=== PATIENT | male | born 1955 | race Caucasian/White ===

== ENCOUNTER → 2016-10-18 | Outpatient (CLI) | payer BC ==
[~2016-10-18] MED LIST: ADVIN25050 INH; CMBIN INH; FEXO1TAB46 PO; METO25TA3 PO; MOME50SP5; OMEP20CA9 PO; PLMINSR5 INH; TRIA1SPR4 NAE; VERA240T20 PO
--- NOTE | 2016-10-18 13:05 | DIAGNOSTIC IMAGING REPORT ---
TWO VIEW CHEST CLINICAL HISTORY: Cough. FINDINGS: PA and lateral chest radiographs are compared to study dated 07/24/2016 and correlated with chest CT dated 05/06/2006. The heart is enlarged and there is atherosclerotic calcification of the thoracic aorta. Pulmonary vasculature is noncongested. Enlargement of the central pulmonary arteries suggests pulmonary artery hypertension. Emphysema and chronic interstitial thickening is similar to previous. Linear atelectasis versus scarring is present at both lung bases. Indeterminant nodular densities are noted on the lateral projection. There is no pneumothorax. The bony thorax appears intact. IMPRESSION: 1. Cardiomegaly and emphysema. There is no acute cardiopulmonary abnormality. 2. Indeterminate nodular densities are seen on the lateral projection. Although these could represent superimposition of shadows, follow-up with a dedicated chest CT is recommended for further assessment and to exclude underlying pulmonary lesion. Electronically signed by: Jonas Renee M.D. 10/18/2016 1:03 PM
== END | disposition home or self-care (01) ==
LOC: C.RADBC 12:10
PROVIDERS: ATTEND Internal Medicine Geriatric Medicine
DX: R05 Cough (principal)

== ENCOUNTER → 2016-10-27 | Outpatient (CLI) | payer BC ==
[~2016-10-27] MED LIST changes: +OPTIRAY 320 IV PRN
--- NOTE | 2016-10-27 15:02 | DIAGNOSTIC IMAGING REPORT ---
CT OF THE CHEST WITH IV CONTRAST CLINICAL HISTORY: Cough. Abnormal chest radiograph. COMPARISON STUDY: Chest radiograph October 18, [address] May 06, 2006. TECHNIQUE: Following IV administration of 93 mL of Optiray-320, helical axial images of the chest were obtained. Images were viewed in the axial, sagittal and coronal planes. IV contrast was administered without complication. CT DOSE: 371.11 mGy.cm FINDINGS: No enlarged axillary, mediastinal or hilar lymph nodes are present. There is slight dilatation of the ascending aorta. There is no dissection. A small hiatal hernia is present. There is no pericardial effusion. The central airways are patent with the exception of multifocal narrowing within the bronchi of the right middle lobe. There is right middle lobe volume loss with airspace opacity. Patchy airspace opacities are noted within the left upper lobe and superior segment of the left lower lobe which accounts for the findings on prior chest radiograph. There is also minimal tree-in-bud opacities within the right upper lobe. A 7 mm right upper lobe nodule shown on image 166 of 361 is low suspicion but indeterminate. This was not present on CT of May 06, 2016. The bony thorax is unremarkable. There are no abnormalities within visualized portions of the upper abdomen. IMPRESSION: 1. Mild scattered airspace opacities within the lungs, most confluent within the apicoposterior segment of the left upper lobe and superior segment of the left lower lobe. These account for the findings on prior chest radiograph. The findings favor a mild multifocal pneumonia. A follow-up chest CT in 2 months to ensure resolution is recommended. 2. Right middle lobe volume loss with airspace opacities and suspected mucous plugging. No central obstructing mass. This can be assessed at time of follow-up chest CT to ensure stability or resolution. Electronically signed by: Shiva Catherine M.D. 10/27/2016 3:00 PM Dictated Date/Time: 10/27/2016 2:46 PM
== END | disposition home or self-care (01) ==
LOC: C.CTS 14:21
PROVIDERS: ATTEND Internal Medicine Geriatric Medicine
DX: J18.9 Pneumonia, unspecified organism (principal); R05 Cough

== ENCOUNTER → 2016-11-15 | Outpatient (CLI) | payer BC ==
[~2016-11-15] MED LIST changes: -OPTIRAY 320 IV PRN
[2016-11-15 14:48] LABS: BASO % 0.4 %; BASO ABS # 0.02 K/uL (0-0.2); COMPLETE YES; EOS % 7.2 %; HEMATOCRIT 47.6 % (42-52); IG% 0.4 %; LYMPH % 18.2 %; LYMPH ABS # 0.88 K/uL (1.2-3.4); MEAN CELL VOLUME 86.1 fL (80-100); MEAN CORPUSCULAR HEMOGLOBIN 28.6 pg (25-34); MEAN CORPUSCULAR HGB CONC 33.2 g/dl (32-36); MEAN PLATELET VOLUME 10.1 fL (7.4-10.4); MONO % 8.3 %; NEUT % 65.5 %; PLATELET COUNT 223 K/uL (130-400); RED BLOOD COUNT 5.53 M/uL (4.7-6.1); WHITE BLOOD COUNT 4.83 K/uL (4.8-10.8)
[2016-11-15 15:14] LABS: ESTIMATED AVERAGE GLUCOSE 114 mg/dl; HA1C FLAG Normal (Normal)
[2016-11-15 17:27] LABS: ALT/SGPT 39 U/L (12-78); BLOOD UREA NITROGEN 18 mg/dl (7-18); BUN/CREATININE RATIO 17.6 (10-20); CALCIUM 9.2 mg/dl (8.5-10.1); CARBON DIOXIDE 24 mmol/L (21-32); CHLORIDE 106 mmol/L (98-107); CHOLESTEROL 205 mg/dl (0-200); GLUCOSE 89 mg/dl (70-99); POTASSIUM 4.6 mmol/L (3.5-5.1); SODIUM 142 mmol/L (136-145)
[2016-11-15 17:41] LABS: ALB/GLOB RATIO 1.2 (0.9-2); ALKALINE PHOSPHATASE 80 U/L (45-117); AST/SGOT 17 U/L (15-37); CHOLESTEROL/HDL RATIO 4.8; HDL CHOLESTEROL 43 mg/dl; LDL CHOLESTEROL CALCULATED 130 mg/dl; TRIGLYCERIDES 161 mg/dl (0-150); VERY LOW DENSITY LIPOPROT CALC 32 mg/dl
== END | disposition home or self-care (01) ==
LOC: C.LAB 12:53
PROVIDERS: ATTEND Internal Medicine Geriatric Medicine
DX: Z86.79 Personal history of other diseases of the circulatory system (principal); J45.909 Unspecified asthma, uncomplicated; E78.5 Hyperlipidemia, unspecified; R73.9 Hyperglycemia, unspecified

== ENCOUNTER → 2016-11-23 | Outpatient (CLI) | payer BC ==
--- NOTE | 2016-11-23 13:41 | DIAGNOSTIC IMAGING REPORT ---
CHEST 2 VIEWS ROUTINE CLINICAL HISTORY: Aspiration pneumonia COMPARISON STUDY: October 18, 2016 FINDINGS: The cardiac and mediastinal contours are normal. There is no evidence of focal pulmonary consolidation. There is no evidence of failure. No pleural effusions are visualized.[ Linear bibasilar opacities are likely atelectatic. IMPRESSION: Bibasal atelectatic changes. No evidence of focal pulmonary consolidation on conventional radiographic imaging Electronically signed by: Mich Valentine M.D. 11/23/2016 1:40 PM Dictated Date/Time: 11/23/2016 1:39 PM
[2016-11-23 14:52] LABS: % FREE PSA 10.3 %; FREE PSA 1.29 ng/ml; PROSTATE SPECIFIC ANTIGEN 12.5 ng/ml (0.000-4.000)
[2016-11-25 10:19] LABS: QUANTIFERON NIL 0.05 IU/ML
== END | disposition home or self-care (01) ==
LOC: C.LAB1850 12:40
PROVIDERS: ATTEND Internal Medicine Pulmonary Disease
DX: J69.0 Pneumonitis due to inhalation of food and vomit (principal); R97.20 Elevated prostate specific antigen [PSA]; J18.9 Pneumonia, unspecified organism

== ENCOUNTER → 2016-11-26 | Outpatient (CLI) | payer BC | END | disposition home or self-care (01) | LOC: C.LABSPEC 11:27 | PROVIDERS: ATTEND Internal Medicine Pulmonary Disease | DX: J18.9 Pneumonia, unspecified organism (principal) ==

== ENCOUNTER → 2016-12-27 | Outpatient (CLI) | payer BC ==
[~2016-12-27] MED LIST changes: +OPTIRAY 320 IV PRN
--- NOTE | 2016-12-27 09:11 | DIAGNOSTIC IMAGING REPORT ---
CHEST CT WITH CONTRAST CT DOSE: 398.29 mGy.cm HISTORY: Abnormal CT exam J69.0 Aspiration pneumonia due to food (regurgitated)do in early TECHNIQUE: Multiaxial CT images of the chest were performed following the intravenous administration of contrast. COMPARISON: 10/27/2016 FINDINGS: Left lung is now considered clear. Infiltrative changes previously described have essentially resolved. Minimal residual 3 mm nodular density left base unchanged. Continued be atelectatic changes of components of the right middle lobe. This is identical as compared to the prior study. There is no significant mediastinal or hilar adenopathy. There is a small hiatal hernia. Liver shows mild heterogeneity in the outer cortical scarring. IMPRESSION: 1. Improved exam with left lung now considered clear. 2. Persistent right middle lobe atelectatic change. 3. Potential early cirrhotic change of liver Electronically signed by: Otoniel Scott M.D. 12/27/2016 9:09 AM Dictated Date/Time: 12/27/2016 9:05 AM
== END | disposition home or self-care (01) ==
LOC: C.CTS 08:37
PROVIDERS: ATTEND Internal Medicine Pulmonary Disease
DX: J69.0 Pneumonitis due to inhalation of food and vomit (principal)

== ENCOUNTER → 2017-01-15 | Outpatient (CLI) | payer BC ==
[~2017-01-15] MED LIST changes: -OPTIRAY 320 IV PRN
[2017-01-15 12:11] LABS: BASO % 0.5 %; BASO ABS # 0.02 K/uL (0-0.2); COMPLETE YES; EOS % 5.7 %; HEMATOCRIT 45.8 % (42-52); IG% 0.3 %; MEAN CELL VOLUME 84.5 fL (80-100); MEAN CORPUSCULAR HGB CONC 33.2 g/dl (32-36); MEAN PLATELET VOLUME 9.7 fL (7.4-10.4); MONO % 9.1 %; NEUT % 58.4 %; PLATELET COUNT 244 K/uL (130-400); RED BLOOD COUNT 5.42 M/uL (4.7-6.1); WHITE BLOOD COUNT 3.84 K/uL (4.8-10.8)
[2017-01-15 12:30] LABS: PARTIAL THROMBOPLASTIN RATIO 1.1; PROTHROMBIN TIME (PATIENT) 10.6 SECONDS (9.0-12.0)
[2017-01-15 12:31] LABS: ALT/SGPT 30 U/L (12-78); AST/SGOT 12 U/L (15-37); BLOOD UREA NITROGEN 10 mg/dl (7-18); BUN/CREATININE RATIO 9.9 (10-20); CALCIUM 9.4 mg/dl (8.5-10.1); CARBON DIOXIDE 29 mmol/L (21-32); CHLORIDE 109 mmol/L (98-107); CREATININE 0.97 mg/dl (0.60-1.40); GLUCOSE 111 mg/dl (70-99); POTASSIUM 4.9 mmol/L (3.5-5.1); SODIUM 142 mmol/L (136-145)
[2017-01-15 12:37] LABS: ALB/GLOB RATIO 1.2 (0.9-2); ALKALINE PHOSPHATASE 75 U/L (45-117)
== END | disposition home or self-care (01) ==
LOC: C.LAB 11:36
PROVIDERS: ATTEND Internal Medicine Critical Care Medicine
DX: R73.9 Hyperglycemia, unspecified (principal); J45.40 Moderate persistent asthma, uncomplicated; J98.11 Atelectasis; R05 Cough; J69.0 Pneumonitis due to inhalation of food and vomit

== ENCOUNTER → 2017-01-20 | Day surgery (SDC) | payer BC ==
[~2017-01-20] VITALS: Ht 193 cm; Wt 94.0 kg
[2017-01-20] VITALS (16 sets, daily range): BP systolic 110–158; BP diastolic 75–114; PULSE 18–73; TEMP 36.3–36.5; O2SAT 96–100; Ht 193 cm; Wt 94.0 kg
[~2017-01-20] MED LIST changes: +FENTANYL CITRATE INJ 50 MCG/1 ML 2 ML VIAL IV ONE; +LIDOCAINE 4% INH SOLN 4 ML BTL ONE; +LIDOCAINE HCL 2% LOCAL 50ML VIAL INFIL ONE; +MIDAZOLAM HCL 5 MG/ML 1 ML VIAL IV ONE; +NURSING VERBAL MED ORDER ONE
--- NOTE | 2017-01-20 09:00 | History and Physical ---
History & Physical Date Jan 20, 2017. Chief Complaint RML atelectasis with poorly controlled asthma History of Present Illness The patient is a 61 year old male with complaints of RML atelectasis with poorly controlled asthma [id number] The patient is referred by Dr. Boo Schneider for evaluation of an abnormal chest x-ray and CT scan. He is a 61-year-old male who has a history of asthma for many years. For the most part his asthma has been well controlled. He carries a history of asthma for approximately 10 years. He states he used to see the pulmonary division at back in 2007. He became ill on ' morning. He awakened between 2 and 3 a.m. with regurgitation of stomach contents, cough, and feeling like he had aspirated. He developed severe coughing. He had a little bit of blood-tinged sputum. He vomited some at the time. The patient developed discomfort on the right side of his chest. He became ill again on November 01 and . He then when on a course of amoxicillin for 10 days. He felt some issues with his breathing again and the right-sided discomfort when taking deep breaths. This past weekend his chest did not feel right. He started dlrw-jlm-vsnlwrw guaifenesin. He coughed up what he describes as a lot of mucus that was clear to yellow. He had fevers of 100 degrees any had sweats this weekend. His cough was frequent but it has improved. The patient relates that he did have pneumonia treated as an outpatient in November of 2006 and he had pneumonia again in December of 2013. At that time he became ill when he had been on a trip to [place]. Additional history is that he had exposure to a student who had tuberculosis back in 2003. The confusing part is that he had a PPD done that was read as positive but he then had a repeat done in 2011 that was negative. He did not receive any prophylactic TB medications. The patient has not smoked in approximately 19 years. His last cigarette was 1997. He states he has smoked often on and he estimates he may have smoked for a total of 8 years in his lifetime. This would typically be with about 1 pack of cigarettes per day. Alcohol use is described as occasional. [id number] The patient is clinically much improved. However, his CT scan done recently shows persistent atelectasis in the right middle lobe. The left lung pneumonic infiltrates have cleared. In light of his history of aspiration the concern would be that he could have a foreign body such as food particle in the right middle lobe. Alternatively we cannot exclude neoplasm or other problems. Past Medical/Surgical History Active Problems 1. Aspiration pneumonia due to food (regurgitated) (J69.0) 2. Asthma (J45.909) 3. Asthma, moderate persistent (J45.40) 4. Atelectasis (J98.11) 5. Chronic sinusitis (J32.9) 6. Cough (R05) 7. Dermatitis (L30.9) 8. Dyslipidemia (E78.5) 9. Elevated prostate specific antigen (PSA) (R97.20) 10. Gastroesophageal reflux disease (K21.9) 11. History of atrial fibrillation (Z86.79) 12. History of colon polyps (Z86.010) 13. Hyperglycemia (R73.9) 14. Nasal polyps (J33.9) 15. Pneumonia (J18.9) 16. Schatzki's ring (K22.2) 17. Solitary pulmonary nodule (R91.1) Past Medical History 1. History of Asthma exacerbation (J45.901) 2. History of Foot mass, left (R22.42) 3. History of acute sinusitis (Z87.09) 4. History of acute sinusitis (Z87.09) 5. History of atrial fibrillation (Z86.79) 6. History of atrial fibrillation (Z86.79) 7. History of bronchitis (Z87.09) 8. History of colon polyps (Z86.010) 9. History of Need for hepatitis C screening test (Z11.59) 10. Pre-operative exam (Z01.818) 11. History of Reported Positive Skin Test For Tuberculosis Surgical History 1. History of Appendectomy 2. History of Complete Colonoscopy 3. History of Hemorrhoidectomy 4. History of Hernia Repair 5. History of Sinus Surgery SurgicalHistory_10_twCiteListControlEnd Additional History Hepatic Disease: No Endocrine Disorder: No Kidney Disease: No Hypertension: No Heart Disease: Yes Bleeding Tendencies: No Infectious Diseases: No Allergies Coded Allergies: Ibuprofen (Verified Allergy, Severe, THROAT SWELLING, 12/27/16) NSAIDs (Verified Allergy, Severe, ANAPHYLAXIS, 07/18/15) Aspirin (Verified Allergy, Mild, 07/18/15) Iodine (Verified Allergy, Unknown, crab,shellfish,shrinp, 07/18/15) Home Medications Scheduled Fexofenadine Hcl (Ana María), 90 MG PO BID Fluticasone Prop/Salmeterol (Advair Diskus 250-50 Mcg/Dose), 2 INH BID Ipratropium/Albuterol (Combivent *), 2 PUFFS INH QID PRN Metoprolol Succ (Toprol Xl) (Toprol-Xl), 12.5 MG PO HS Mometasone Furoate (Nasonex), 2 SPRAY NA BID Omeprazole (Prilosec), 20 MG PO QAM Verapamil Sust Rel (Calan Sr Ext Rel), 120 MG PO HS Miscellaneous Medications Budesonide (Pulmicort Respules 0.5MG/2ML), 2 ML INH Physical Examination Skin: warm/dry, no rash Eyes: normal inspection, EOMI, sclerae normal ENT: normal ENT inspection, pharynx normal Head: normocephalic, atraumatic Neck: supple, no adenopathy, trachea midline Respiratory/Chest: lungs clear, normal breath sounds, no respiratory distress Cardiovascular: regular rate, rhythm, no edema, no murmur Abdomen / GI: normal bowel sounds, non tender Back: normal inspection Extremities: normal inspection, normal range of motion Neurologic/Psych: no motor/sensory deficits, alert, normal reflexes, oriented x 3 Diagnosis RML atelectasis with poorly controlled asthma ASA Classification: ASA Class II Plan of Treatment Bronchoscopy with BAL of the RML
--- NOTE | 2017-01-20 09:50 | History & Physical Bridge Note ---
H&P Re-Evaluation Bridge Note: I have examined the patient, reviewed the History & Physical and in the interval since the performance of the History & Physical I have noted the following changes of clinical significance: No changes noted
--- NOTE | 2017-01-20 09:51 | Procedure Note ---
Pre-Mod Sedation Assessment General Date of Moderate Sedation: Jan 20, 2017. Vital Signs: Vital Signs Past 12 Hours Date Time Temp Pulse Resp B/P Pulse Ox O2 Delivery O2 Flow Rate FiO2 01/20/17 09:23 36.3 58 20 138/86 96 Room Air Review Cardiovascular: regular rate, rhythm, no edema, no gallop, no JVD, no murmur, normal peripheral pulses Abdomen: normal bowel sounds, non tender, soft, no organomegaly, no pulsatile mass, normal rectal exam, occult blood negative Lungs: chest non-tender, lungs clear, normal breath sounds, no respiratory distress, no accessory muscle use Airway Class: II Pre-Sedation Airway Assessment Oral Cavity: Capped Teeth, WNL Able to Visualize Vocal Cords: Yes Short Thick Neck: No Hx of Sleep Apnea: No Smoking Status: Former Smoker Mallampati Classification: Class II ASA Classification: Class II Procedure Planning Contraindications-for Mod Sed: None Yes Notes The planned sedation has been discussed with the patient and consent obtained. I have identified the patient, determined the appropriateness of sedation and have assessed the patient immediately prior to the procedure. All medicine(s) and interventions are by my order.
--- NOTE | 2017-01-20 10:58 | Discharge Instructions ---
Discharge Instructions Date of Service Jan 20, 2017. Admission Reason for Admission: Asthma Discharge Discharge Diagnosis / Problem: atelectasis of the right middle lobe Discharge Goals Goal(s): Diagnostic testing Activity Recommendations Activity Limitations: resume your previous activity . Instructions / Follow-Up Instructions / Follow-Up Follow-up with Dr. Cuate rajan of the [facility] pulmonary division Current Hospital Diet Patient's current hospital diet: Discharge Diet Recommended Diet: Regular Diet Procedures Procedures Performed: Bronchoscopy, conscious sedation, bronchial lavage, transbronchial biopsies of the right middle lobe Pending Studies Studies pending at discharge: yes List of pending studies: Microbiology, viral analysis, fungal analysis, histology Laboratory Results Hemoglobin A1c Test 11/15/16 13:04 Range/Units Estimated Average Glucose 114 mg/dl Hemoglobin A1c 5.6 4.5-5.6 % Lipid Panel Test 11/15/16 13:04 Range/Units Triglycerides Level 161 H 0-150 mg/dl Cholesterol Level 205 H 0-200 mg/dl HDL Cholesterol 43 mg/dl Cholesterol/HDL Ratio 4.8 LDL Cholesterol, Calculated 130 mg/dl Medical Emergencies . Who to Call and When: Medical Emergencies: If at any time you feel your situation is an emergency, please call 911 immediately. . Non-Emergent Contact Non-Emergency issues call your: Window Air Conditioner Installer Call Non-Emergent contact if: temperature is above 101.5 . . "Provider Documentation" section prepared by Sam Leong. VTE Core Measure Inpt VTE Proph given/why not?: Treatment not indicated
--- NOTE | 2017-01-20 10:59 | Procedure Note ---
Post-Moderate Sedation Plan General Date of Moderate Sedation Jan 20, 2017. Vital Signs: Vital Signs Past 12 Hours Date Time Temp Pulse Resp B/P Pulse Ox O2 Delivery O2 Flow Rate FiO2 01/20/17 10:45 70 20 134/94 98 Nasal Cannula 4.0 01/20/17 10:40 53 18 110/79 96 Nasal Cannula 4.0 01/20/17 10:35 68 18 131/103 98 Mask 6.0 01/20/17 10:30 68 14 119/88 100 Mask 6.0 01/20/17 10:25 73 20 131/91 100 Mask 6.0 01/20/17 10:20 71 18 136/114 100 Tent 6.0 01/20/17 10:15 71 18 158/98 100 Tent 6.0 01/20/17 10:05 72 18 152/92 100 Tent 6.0 01/20/17 09:23 36.3 58 20 138/86 96 Room Air Review - Discharge Plan Post Moderate Sedation Plan: On clinical assessment, the patient appears to have tolerated the conscious sedation without complications. Patient is recovering as anticipated. Patient will continue to be monitored by nursing and may be discharged when conscious sedation discharge criteria are met.
--- NOTE | 2017-01-20 11:04 | Bronchoscopy Procedure Note ---
Bronchoscopy Procedure Note Procedure: Bronchoscopy, conscious sedation, bronchial alveolar lavage, transbronchial biopsies of the right middle lobe Consent: Obtained through the patient placed into the chart Preprocedural diagnosis: Right middle lobe atelectasis Postprocedural diagnosis: Right middle lobe atelectasis Start time: 1015 End time: 1037 Total time: 21 minutes Analgesia: 2% liquid lidocaine: Via nebulizer 4% gel lidocaine: Via right naris 2% liquid lidocaine: Via bronchoscopy Sedation: Versed IV: 5 mg Fentanyl IV: 125 g Procedure: The Norstel video bronchoscope was used for this procedure initially passed down through the oropharynx and retroflexed off the soft palate then passed out through the right naris. Right naris/posterior naris: Mild mucous globally, possible small nasal polyp, otherwise Anatomically within normal limits Posterior/Anterior Oropharynx: Diffuse thrush Glottis: Anatomically within normal limits Vocal cords: Proper abduction and abduction, anatomically within normal limits Subglottis/trachea/Arleen: Anatomically within normal limits, minimal mucous appreciated easily cleared Right bronchial tree: Right mainstem bronchus: Anatomically within normal limits Right upper lobe: Anatomically within normal limits Bronchus intermedius: Anatomically within normal limits Right middle lobe: Circumferential narrowing approximately 3 mm from the takeoff Able to pass the scope initially passed the circumferential narrowing there was irritated mucosa but no signs of foreign body Right lower lobe: Anatomically within normal limits Findings: Circumferential narrowing of the right middle lobe Left bronchial tree: Left mainstem bronchus: Anatomically within normal limits Left upper lobe: Anatomically within normal limits Lingula: Anatomically within normal limits Left lower lobe: Anatomically within normal limits Findings: No significant findings noted Bronchial alveolar lavage: 80 cc lavage was performed of the right middle lobe with approximately 35 cc returned, mildly serosanguineous Transbronchial biopsies: 5 transbronchial biopsies were obtained of the right middle lobe Complications: None Follow-up: Follow-up with Dr. Cuate rajan of the [facility] pulmonary department
--- NOTE | 2017-01-20 11:22 | DIAGNOSTIC IMAGING REPORT ---
CHEST ONE VIEW PORTABLE CLINICAL HISTORY: pneumothorax COMPARISON STUDY: 11/23/2016 FINDINGS: development of increased density at the right base. This presumably is inflammatory and/or atelectatic. No evidence for postprocedural pneumothorax. Left lung is clear. IMPRESSION: 1. No evidence pneumothorax. 2. Interval development of a consolidative or infiltrative process right base. A focal parenchymal hemorrhage is also a diagnostic possibility Electronically signed by: Otoniel Scott M.D. 01/20/2017 11:19 AM Dictated Date/Time: 01/20/2017 11:17 AM
[2017-02-16 11:03] LABS: HERPES SIMPLEX CULT SOURCE RESPIRATORY-BAL RML; HERPES SIMPLEX VIRUS CULT NOT ISOLATED (NOT ISOLATED)
== END | disposition home or self-care (01) ==
LOC: C.ACU 08:27
PROVIDERS: ATTEND Internal Medicine Critical Care Medicine
DX: J98.11 Atelectasis (principal); J45.909 Unspecified asthma, uncomplicated; J98.4 Other disorders of lung; J32.9 Chronic sinusitis, unspecified; K21.9 Gastro-esophageal reflux disease without esophagitis; E78.5 Hyperlipidemia, unspecified; Z86.010 Personal history of colon polyps; K22.2 Esophageal obstruction; Z98.890 Other specified postprocedural states; Z90.49 Acquired absence of other specified parts of digestive tract; Z91.041 Radiographic dye allergy status; Z88.8 Allergy status to other drugs, medicaments and biological substances

== ENCOUNTER → 2017-07-23 | Outpatient (CLI) | payer BC ==
[~2017-07-23] MED LIST changes: -FENTANYL CITRATE INJ 50 MCG/1 ML 2 ML VIAL IV ONE; -LIDOCAINE 4% INH SOLN 4 ML BTL ONE; -LIDOCAINE HCL 2% LOCAL 50ML VIAL INFIL ONE; -MIDAZOLAM HCL 5 MG/ML 1 ML VIAL IV ONE; -MOME50SP5; -NURSING VERBAL MED ORDER ONE
--- NOTE | 2017-07-23 09:13 | DIAGNOSTIC IMAGING REPORT ---
R ANKLE MIN 3 VIEWS ROUTINE HISTORY: 62 years-old Male S99.911A Right ankle [id number] acute right ankle pain status post twisting injury. COMPARISON: None available TECHNIQUE: 3 views of the right ankle FINDINGS: There is mild soft tissue swelling about the ankle, greatest anterolaterally. Small joint effusion. Moderate plantar enthesophyte is present. No acute fracture or dislocation. IMPRESSION: Soft tissue swelling without acute fracture or dislocation. The above report was generated using voice recognition software. It may contain grammatical, syntax or spelling errors. Electronically signed by: Landon Young M.D. 07/23/2017 9:11 AM Dictated Date/Time: 07/23/2017 9:10 AM
== END | disposition home or self-care (01) ==
LOC: C.RADBC 08:46
PROVIDERS: ATTEND Family Medicine Adult Medicine
DX: S99.911A Unspecified injury of right ankle, initial encounter (principal); X58.XXXA Exposure to other specified factors, initial encounter

== ENCOUNTER → 2018-01-19 | Outpatient (CLI) | payer OTHER ==
[~2018-01-19] MED LIST changes: +OPTIRAY 320 IV PRN
--- NOTE | 2018-01-19 10:41 | DIAGNOSTIC IMAGING REPORT ---
CT OF THE CHEST WITH IV CONTRAST CLINICAL HISTORY: Right middle lobe atelectasis/collapse. Follow-up study. COMPARISON STUDY: 12/27/2016 TECHNIQUE: Following the IV administration of 119 mL of Optiray-320, CT of the thorax was performed from the thoracic inlet to the lung bases. Images are reviewed in the axial, sagittal, and coronal planes. IV contrast was administered without complication. A dose lowering technique was utilized adhering to the principles of ALARA. CT DOSE: 445.90 mGycm FINDINGS: Thyroid: Imaged portions of the thyroid gland are normal in appearance. Thoracic aorta: The thoracic aorta is normal in course and caliber, noting standard 3-vessel arch anatomy. No aneurysm or dissection is seen. Pulmonary vasculature: The pulmonary trunk is normal in caliber. There are no central filling defects identified to suggest pulmonary embolus. Note that this examination was not protocoled for the evaluation of pulmonary emboli. HEART: The heart is normal in size and configuration, without pericardial effusion. Lungs and pleural spaces: There is no focal pulmonary consolidation. There are no pleural effusions. There is persistent narrowing of right middle lobe bronchi. There is persistent but improving right middle lobe atelectasis. There is a stable 4.5 mm solid left lower lobe pulmonary nodule. There is a stable 4 mm right upper lobe pulmonary nodule. There is a stable solid 5 mm right upper lobe pulmonary nodule. Mediastinum: There is no mediastinal lymphadenopathy. Olga: There is no evidence of pathologic hilar adenopathy Axilla: There is no evidence of pathologic axillary lymphadenopathy Upper abdomen: There is small hiatal hernia Skeletal structures: There are no lytic or blastic osseous lesions. IMPRESSION: 1. Stable bilateral subcentimeter pulmonary nodules, the largest of which measures 5 mm 2. Persistent but improving right middle lobe atelectasis 3. No evidence of pathologic adenopathy Electronically signed by: Mich Valentine M.D. 01/19/2018 10:39 AM Dictated Date/Time: 01/19/2018 10:32 AM
== END | disposition home or self-care (01) ==
LOC: C.CTS 10:06
PROVIDERS: ATTEND Internal Medicine Pulmonary Disease
DX: J98.11 Atelectasis (principal); R91.8 Other nonspecific abnormal finding of lung field

== ENCOUNTER 2019-08-21 14:31 | Inpatient (IN) ==
[2019-08-21] MEDS ORDERED: LIDOCAINE 2% JELLY 5 ML TUBE ONE (15:07)
[2019-08-21] MEDS ORDERED: SODIUM CHLORIDE 0.9% 1000ML 1,000 ML IV ONE (15:30)
[2019-08-21 15:59] LABS: Basophils # (auto) 0.02 K/uL (0-0.2); Basophils % (auto) 0.5 %; Eosinophils # (auto) 0.14 K/uL (0-0.5); Eosinophils % (auto) 3.7 %; Hematocrit (blood only) 39.4 % (42-52); Immature Granulocytes # (auto) 0.01 K/uL (0.00-0.02); Immature Granulocytes % (auto) 0.3 %; Lymphocytes # (auto) 0.64 K/uL (1.2-3.4); Lymphocytes % (auto) 17.1 %; Mean Corpuscular Hemoglobin 28.4 pg (25-34); Mean Platelet Volume 9.9 fL (7.4-10.4); Monocytes # (auto) 0.34 K/uL (0.11-0.59); Monocytes % (auto) 9.1 %; Neutrophils % (auto) 69.3 %; Platelet Count 279 K/uL (130-400); RDW Coefficient of Variation 13.8 % (11.5-14.5); RDW Standard Deviation 43.1 fL (36.4-46.3); Red Blood Count 4.58 M/uL (4.7-6.1); White Blood Count 3.75 K/uL (4.8-10.8)
[2019-08-21 16:00] LABS: Appearance Urine Clear (Clear); Bilirubin Urine Negative (Negative); Blood Urine Negative (Negative); Color Urine Yellow; Glucose Urine UA Negative (Negative); Ketones Urine Negative (Negative); Leukocyte Esterase Urine Negative (Negative); Nitrite Urine Negative (Negative); Protein Urine Negative (Negative); Specific Gravity Urine 1.008 (1.000-1.030); Urobilinogen Urine Negative (Negative); pH Urine 7.5 (4.5-7.5)
[2019-08-21 16:16] LABS: Albumin Level 4.3 gm/dl (3.4-5.0); Calcium 9.7 mg/dl (8.5-10.1); Creatinine Clr Calc Pharmacy 36.8 ml/min; Est GFR (Non-African American) 27.7; Magnesium 2.2 mg/dl (1.8-2.4); Potassium 4.1 mmol/L (3.5-5.1)
[2019-08-21 16:19] LABS: Albumin Globulin Ratio 1.1 (0.9-2); Bilirubin,Total 0.6 mg/dl (0.2-1); Globulin 3.8 gm/dl (2.5-4.0); Total Protein 8.1 gm/dl (6.4-8.2)
--- NOTE | 2019-08-21 16:29 | History & Physical Report ---
Date of Service August 21, 2019 Assessment & Plan (1) Acute urinary retention: Patient with long-standing history of BPH, development of bladder outlet obstruction, urinary retention and hydro-nephrosis. 3.4 L removed with placement of Aguirre in the ER. -Maintain Aguirre, routine care every shift, irrigate as needed -Strict I's and O's -Continue Flomax 0.4 mg p.o. daily -IV hydration with normal saline at 125 mL/h x 2 L -Request records from [facility] -Urology consultation appreciated Present on Admission?: Yes (2) Acute kidney injury: Patient with elevated creatinine to 2.73. Most likely secondary to postobstructive uropathy. Obstruction has been relieved with placement of Aguirre catheter and patient is draining bloody urine at present. -IV fluids with normal saline at 125 cc/h x 2 L. Monitor I/os, BMP daily -Avoid nephrotoxic agents Renal dosing were needed Present on Admission?: Yes (3) Hydronephrosis: Most likely secondary to bladder outlet obstruction. Aguirre in place Continue to monitor urine output and renal function Present on Admission?: Yes (4) Bladder outlet obstruction: Secondary to BPH. Patient follows at [facility] with urology. We will request records Continue Flomax Urology consult Present on Admission?: Yes (5) Hematuria: Patient with bloody urine output, clots reported. Aguirre continues to d rain. Possibly traumatic in setting of very large prostate -Maintain Aguirre -Monitor urine output -Monitor CBC -Neurology consult appreciated Present on Admission?: Yes (6) Asthma, moderate persistent: Chronic. Stable. No shortness of breath, cough or wheeze Continue albuterol as needed Continue Advair Continue Pulmicort -Continue Singulair Present on Admission?: Yes (7) Gastroesophageal reflux disease: Chronic. Stable. Continue Protonix (8) History of atrial fibrillation: Remote history. Patient denies palpitations. Not on anticoagulation. Continue verapamil Continue to monitor FENnormal saline at 125 mL/h x 2 L, monitor electrolytes replete as needed, regular diet as tolerated Prophylaxispatient is low risk. IV fluids and ambulation encouraged [place] per discussion with patient. [facility]?: Yes History of Present Illness Chief Complaint: Urinary retention. Primary Care Provider: Jaime Aguero DO [facility] [place] is a 64-year-old male with history of BPH. He follows with urology at [facility]. States that approximately 7 years ago he was noted to have an elevation of PSA. He had a biopsy done at that time which was negative for malignancy. He has since had multiple MRIs to evaluate his prostate. Notes that the last MRI in late May revealed a very large volume prostate, approximately 100 cc. Also found to have bladder distention on the most recent MRI. He reports that his urinary symptoms have been overall fairly well controlled, possibly slightly worse over the last month. He has nocturia, gets up 2-5 times per night to urinate. Reports that his urinary stream is usually strong, sometimes a slow. He typically does not need to force start. He denies dysuria, fevers or chills, hematuria. He saw his PCP yesterday with inability to urinate, firm and distended abdomen. He had an ultrasound done which revealed bladder distention and hydroureter bilaterally. Creatinine found to be elevated 2.7 up from prior value of 0.9. Patient was started on Flomax yesterday. Has taken 1 dose. He came to the ER today where a Aguirre catheter was placed and promptly drained 3.4 L of urine. Patient reports immediate improvement in his abdominal distention and discomfort. Does report some vague low back pain at present. Additionally complains of mild nausea from time to time. No additional complaints at this time. ER course: Aguirre placed Allergies Allergy/AdvReac Type Severity Reaction Status Date / Time ibuprofen Allergy Severe THROAT Verified 08/21/19 16:25 SWELLING NSAIDS (Non-Steroidal Allergy Severe ANAPHYLAXIS Verified 08/21/19 16:25 Anti-Inflamma aspirin Allergy Mild Verified 08/21/19 16:25 shellfish derived Allergy crab and Verified 08/21/19 16:25 shrimp for sure Home Medications Home Medications Medication Instructions Recorded Confirmed Type albuterol sulfate HFA 90 2 puffs INHALATION Q4H PRN #1 gm 05/17/19 08/21/19 History mcg/actuation aerosol inhaler budesonide 0.5 mg/2 mL suspension 0.5 mg INHALATION BID #90 ml 05/17/19 08/21/19 History for nebulization epinephrine 0.3 mg/0.3 mL 0.3 ml IM PRN ea 05/17/19 08/21/19 History injection, auto-injector guaifenesin ER 600 mg tablet, 600 mg PO Q12H PRN #20 tab 05/17/19 08/21/19 History extended release 12 hr montelukast 10 mg tablet 10 mg PO HS #90 tab 05/17/19 08/21/19 History omeprazole 20 mg capsule,delayed 20 mg PO QAM #90 cap 05/17/19 08/21/19 History release fluticasone 250 mcg-salmeterol 50 1 puffs INH BID #60 ea 08/07/19 08/21/19 Rx mcg/dose blistr powdr for inhalation fexofenadine 90 mg PO BID 08/21/19 08/21/19 History metoprolol succinate 12.5 mg PO HS 08/21/19 08/21/19 History tamsulosin 0.4 mg capsule 0.4 mg PO QDD 08/21/19 08/21/19 History verapamil 120 mg PO HS 08/21/19 08/21/19 History Past Med/Surg History Medical History BPH (benign prostatic hyperplasia) GERD (gastroesophageal reflux disease) Hyperlipidemia Hypothyroidism Atrial fib/flutter, transient Surgical History H/O colonoscopy H/O hemorrhoidectomy H/O hernia repair H/O sinus surgery History of appendectomy Family History Mother Patient's mother is Social History Preferred Language: Nepalese Communication Ability: Effective Visual Impairment: No Limitations Hearing Ability: Normal Pit Hoist Operator Required: No Beliefs That Will Affect Care: None marital status: Current Living Situation: Spouse current occupational status: employed Other Information That Helps Us Care for You: No Feels Safe at Home: Yes Safety Concerns: Feels Safe At This Time Smoking Status: Former smoker Hx Alcohol Use: Yes Alcohol type: beer Hx Substance Use: No Review of Systems Review of Systems: All systems reviewed & are unremarkable except as noted in HPI & below Physical Exam Physical Exam: General: patient resting comfortably, NAD, non-toxic in appearance, AA&O x 4 Skin: warm, dry, intact, no rashes or lesions HEENT: NC/AT, PERRL, EOMI, anicteric sclera, conjunctiva without injection, external ear normal to inspection and nontender, nares patent, moist mucus membranes, dentition intact, no oropharyngeal lesions, neck supple, trachea midline, no LAD, no thyromegaly, no JVD Heart: +S1/S2, regular, no m/r/g Lungs: equal air entry bilaterally, no rales/rhonchi/wheezes Abd: +BS, soft, NT/ND, no masses/organomegaly/ascites Ext: warm, 2+ pulses in UE/LE bilaterally, no clubbing/cyanosis or edema, Aguirre in place with approximately 200 mL of pink-colored urine Neuro: nonfocal, patient AA&O x 4, speech intact, no facial droop, moving all extremities on command with equal strength 5/5 Results & Data Vital Signs (Past 12 Hours) Vital Signs Temp Pulse Resp BP Pulse Ox 08/21/19 14:33 36.4 C L 75 18 179/115 H 97 Laboratory Results Lab Results 08/21/19 08/21/19 08/21/19 Range/Units 15:30 15:50 15:50 WBC 3.75 L (4.8-10.8) K/uL RBC 4.58 L (4.7-6.1) M/uL Hgb 13.0 L (14.0-18.0) g/dL Hct 39.4 L (42-52) % MCV 86.0 (80-100) fL MCH 28.4 (25-34) pg MCHC 33.0 (32-36) g/dL RDW Std Deviation 43.1 (36.4-46.3) fL RDW Coeff of Froylan 13.8 (11.5-14.5) % Plt Count 279 (130-400) K/uL MPV 9.9 (7.4-10.4) fL Immature Gran % (Auto) 0.3 % Neut % (Auto) 69.3 % Lymph % (Auto) 17.1 % [place] % (Auto) 9.1 % Eos % (Auto) 3.7 % Baso % (Auto) 0.5 % Immature Gran # (Auto) 0.01 (0.00-0.02) K/uL Neut # (Auto) 2.60 (1.4-6.5) K/uL Lymph # (Auto) 0.64 L (1.2-3.4) K/uL [place] # (Auto) 0.34 (0.11-0.59) K/uL Eos # (Auto) 0.14 (0-0.5) K/uL Baso # (Auto) 0.02 (0-0.2) K/uL Sodium 139 (136-145) mmol/L Potassium 4.1 (3.5-5.1) mmol/L Chloride 107 (98-107) mmol/L Carbon Dioxide 26 (21-32) mmol/L Anion Gap 6.0 (3-11) BUN 24 H (7-18) mg/dl Creatinine 2.36 H D (0.6-1.4) mg/dl Est Cr Clr Drug Dosing 36.8 ml/min Est GFR ( Amer) 32.0 Est GFR (Non-Af Amer) 27.7 BUN/Creatinine Ratio 10.0 (10-20) Glucose 95 (70-99) mg/dl Calcium 9.7 (8.5-10.1) mg/dl Phosphorus (2.5-4.9) mg/dl Magnesium 2.2 (1.8-2.4) mg/dl Total Bilirubin 0.6 (0.2-1) mg/dl AST 9 L (15-37) U/L ALT 22 (12-78) U/L Alkaline Phosphatase 92 (45-117) U/L Total Protein 8.1 (6.4-8.2) gm/dl Albumin 4.3 (3.4-5.0) gm/dl Globulin 3.8 (2.5-4.0) gm/dl Albumin/Globulin Ratio 1.1 (0.9-2) Urine Color Yellow Urine Appearance Clear (Clear) Urine pH 7.5 (4.5-7.5) Ur Specific [place] 1.008 (1.000-1.030) Urine Protein Negative (Negative) Urine Glucose (UA) Negative (Negative) Urine Ketones Negative (Negative) Urine Blood Negative (Negative) Urine Nitrite Negative (Negative) Urine Bilirubin Negative (Negative) Urine Urobilinogen Negative (Negative) Ur Leukocyte Esterase Negative (Negative) 08/21/19 Range/Units 15:50 WBC (4.8-10.8) K/uL RBC (4.7-6.1) M/uL Hgb (14.0-18.0) g/dL Hct (42-52) % MCV (80-100) fL MCH (25-34) pg MCHC (32-36) g/dL RDW Std Deviation (36.4-46.3) fL RDW Coeff of Froylan (11.5-14.5) % Plt Count (130-400) K/uL MPV (7.4-10.4) fL Immature Gran % (Auto) % Neut % (Auto) % Lymph % (Auto) % [place] % (Auto) % Eos % (Auto) % Baso % (Auto) % Immature Gran # (Auto) (0.00-0.02) K/uL Neut # (Auto) (1.4-6.5) K/uL Lymph # (Auto) (1.2-3.4) K/uL [place] # (Auto) (0.11-0.59) K/uL Eos # (Auto) (0-0.5) K/uL Baso # (Auto) (0-0.2) K/uL Sodium (136-145) mmol/L Potassium (3.5-5.1) mmol/L Chloride (98-107) mmol/L Carbon Dioxide (21-32) mmol/L Anion Gap (3-11) BUN (7-18) mg/dl Creatinine (0.6-1.4) mg/dl Est Cr Clr Drug Dosing ml/min Est GFR ( Amer) Est GFR (Non-Af Amer) BUN/Creatinine Ratio (10-20) Glucose (70-99) mg/dl Calcium (8.5-10.1) mg/dl Phosphorus 3.4 (2.5-4.9) mg/dl Magnesium (1.8-2.4) mg/dl Total Bilirubin (0.2-1) mg/dl AST (15-37) U/L ALT (12-78) U/L Alkaline Phosphatase (45-117) U/L Total Protein (6.4-8.2) gm/dl Albumin (3.4-5.0) gm/dl Globulin (2.5-4.0) gm/dl Albumin/Globulin Ratio (0.9-2) Urine Color Urine Appearance (Clear) Urine pH (4.5-7.5) Ur Specific [place] (1.000-1.030) Urine Protein (Negative) Urine Glucose (UA) (Negative) Urine Ketones (Negative) Urine Blood (Negative) Urine Nitrite (Negative) Urine Bilirubin (Negative) Urine Urobilinogen (Negative) Ur Leukocyte Esterase (Negative) Code Status & VTE Plan Code Status Full code VTE Prophylaxis Plan VTE Prophylaxis will be ordered: No Reason for no VTE drug order: Treatment not indicated Reason for no VTE mechanical prophylaxis: Treatment not indicated PG Care Time/CCT Total # of Minutes Spent Total Time Spent with Patient: Total time spent is greater than 50% in coordina tion of care (as documented) at patient's floor/unit and/or counseling patient: (1) Hydronephrosis Hydronephrosis type: unspecified Qualified Code(s): N13.30 - Unspecified hydronephrosis (2) Asthma, moderate persistent Asthma complication type: uncomplicated Qualified Code(s): J45.40 - Moderate persistent asthma, uncomplicated (3) Gastroesophageal reflux disease Esophagitis presence: esophagitis presence not specified Qualified Code(s): K21.9 - Gastro-esophageal reflux disease without esophagitis (4) Hematuria Hematuria type: gross Qualified Code(s): R31.0 - Gross hematuria
--- NOTE | 2019-08-21 16:38 | Emergency Department Note ---
Entered by Richard Spencer acting as a scribe for Jonas William MD History of Present Illness General Chief complaint: Urinary Symptoms Stated complaint: BLADDER, KIDNEY PAIN Time Seen by Provider: 08/21/19 15:21 Source: patient and family History of Present Illness Provider complaint: urinary retention Onset (ago): week(s) 1 Location: genitals Pain Consistency: + constant Maximum Pain Intensity: 0 Associated symptoms: + denies other symptoms The patient is a 64 y/o male who presents to the emergency department for evaluation of constant urinary retention that has been gradually getting worse so he was sent to the ED today but his doctor. The patient states that he has B PH which has been getting worse and resulted in the gradual filling up of the bladder. He notes that he went to the doctors yesterday and had a renal ultrasound done and lab work--the doctor sent him to the ED today because of the test results. The states that the patients abdomen was so distended that it looked like and felt like a watermelon. The patient notes he started Flomax last night. The patient denies a fever, feeling the urge to urinate, and any other symptoms. The nurse reports 3450 cc of urine removed via hilario catheter so far. Home Medications Home Medications Medication Instructions Recorded Confirmed Type albuterol sulfate HFA 90 2 puffs INHALATION Q4H PRN #1 gm 05/17/19 08/21/19 History mcg/actuation aerosol inhaler budesonide 0.5 mg/2 mL suspension 0.5 mg INHALATION BID #90 ml 05/17/19 08/21/19 History for nebulization epinephrine 0.3 mg/0.3 mL 0.3 ml IM PRN ea 05/17/19 08/21/19 History injection, auto-injector guaifenesin ER 600 mg tablet, 600 mg PO Q12H PRN #20 tab 05/17/19 08/21/19 History extended release 12 hr montelukast 10 mg tablet 10 mg PO HS #90 tab 05/17/19 08/21/19 History omeprazole 20 mg capsule,delayed 20 mg PO QAM #90 cap 05/17/19 08/21/19 History release fluticasone 250 mcg-salmeterol 50 1 puffs INH BID #60 ea 08/07/19 08/21/19 Rx mcg/dose blistr powdr for inhalation fexofenadine 90 mg PO BID 08/21/19 08/21/19 History metoprolol succinate 12.5 mg PO HS 08/21/19 08/21/19 History tamsulosin 0.4 mg capsule 0.4 mg PO QDD 08/21/19 08/21/19 History verapamil 120 mg PO HS 08/21/19 08/21/19 History Allergies Allergy/AdvReac Type Severity Reaction Status Date / Time ibuprofen Allergy Severe THROAT Verified 08/21/19 16:25 SWELLING NSAIDS (Non-Steroidal Allergy Severe ANAPHYLAXIS Verified 08/21/19 16:25 Anti-Inflamma aspirin Allergy Mild Verified 08/21/19 16:25 shellfish derived Allergy crab and Verified 08/21/19 16:25 shrimp for sure Past Med/Surg History Medical History BPH (benign prostatic hyperplasia) GERD (gastroesophageal reflux disease) Hyperlipidemia Hypothyroidism Atrial fib/flutter, transient Surgical History H/O colonoscopy H/O hemorrhoidectomy H/O hernia repair H/O sinus surgery History of appendectomy Family History Mother Patient's mother is Social History Preferred Language: Serbian Communication Ability: Effective Visual Impairment: No Limitations Hearing Ability: Normal [employer] Dispatcher Required: No Beliefs That Will Affect Care: None marital status: Current Living Situation: Spouse current occupational status: employed Other Information That Helps Us Care for You: No Feels Safe at Home: Yes Safety Concerns: Feels Safe At This Time Smoking Status: Former smoker Hx Alcohol Use: Yes Alcohol type: beer Hx Substance Use: No Review of Systems See HPI for pertinent positives & negatives. and A total of 10 systems reviewed and were otherwise negative Physical Exam Vital Signs Vital Signs - 24 hr 08/21/19 14:33 Temperature 36.4 C L Temperature Source Oral Sepsis Recent Fever Within 48 Hours No Sepsis New/Unexplained Change in Mental Status No Sepsis Action Taken by Nursing No Action Required Pulse Rate 75 Respiratory Rate 18 Respiratory Effort / Characteristics Non-Labored Spontaneous Respiratory Depth Normal Respiratory Pattern Regular Blood Pressure 179/115 H Blood Pressure Mean 136 Blood Pressure Position Sitting Pulse Oximetry 97 Oxygen Delivery Method Room Air GENERAL: Patient is in no acute distress. HEENT: No acute trauma, normocephalic atraumatic, mucous membranes moist, no nasal congestion, no scleral icterus. NECK: No stridor, no adenopathy, no meningismus, trachea is midline. LUNGS: Clear to auscultation bilaterally, no wheeze, no rhonchi, breath sounds equal. HEART: Without murmurs gallops or rubs, regular rate and rhythm. ABDOMEN: Soft, nontender, bowel sounds positive, no hernias, no peritonitis. GROIN: Hilario catheter in place EXTREMITIES: No cyanosis or edema, full range of motion of all the joints without pain or difficulty, no signs for acute trauma. NEUROLOGIC: Oriented x 3, no acute motor or sensory deficits, no focal weakness. SKIN: No rash, no jaundice, no diaphoresis. Course 1524: Past medical records reviewed. The patient was evaluated in room B10. A complete history and physical exam was performed. 1541: [facility] [place] She will evaluate to further management. Administered Medications Fexofenadine HCl (Ana María) 90 mg PO BID BENITO Stop: 09/21/19 01:19 Last Admin: 08/22/19 09:01 Dose: 90 mg Documented by: [id number] Admin: 08/22/19 01:38 Dose: 90 mg Documented by: [id number] Metoprolol Succinate (Toprol Xl) 12.5 mg PO HS BENITO Stop: 09/20/19 22:34 Last Admin: 08/21/19 22:40 Dose: 12.5 mg Documented by: [id number] Montelukast Sodium (Singulair) 10 mg PO DAILY BENITO Stop: 09/21/19 08:59 Last Admin: 08/22/19 09:01 Dose: 10 mg Documented by: [id number] Fluticasone/Salmeterol (Advair Diskus 250/50) 1 puffs INH BID BENITO Stop: 09/20/19 20:59 Last Admin: 08/22/19 09:01 Dose: 1 puffs Documented by: [id number] Admin: 08/21/19 22:25 Dose: 1 puffs Documented by: [id number] Tamsulosin HCl (Flomax) 0.4 mg PO QDD BENITO Stop: 09/20/19 16:29 Last Admin: 08/21/19 20:05 Dose: 0.4 mg Documented by: [id number] Verapamil HCl (Calan Sr) 120 mg PO HS BENITO Stop: 09/20/19 20:59 Last Admin: 08/21/19 22:23 Dose: 120 mg Documented by: [id number] Discontinued Medications Budesonide (Pulmicort Respules) 0.5 mg INH BIDR BENITO Stop: 09/20/19 18:59 Last Admin: 08/22/19 05:35 Dose: Not Given Documented by: [id number] Admin: 08/21/19 19:54 Dose: Not Given Documented by: [id number] Sodium Chloride (Nss 1000ml) 1,000 mls @ 999 mls/hr IV .Q1H1M ONE Stop: 08/21/19 16:30 Last Infusion: 08/21/19 16:50 Dose: 0 mls/hr Documented by: [id number] Admin: 08/21/19 15:48 Dose: 999 mls/hr Documented by: [id number] Sodium Chloride (Nss 1000ml) 1,000 mls @ 125 mls/hr IV .Q8H BENITO Stop: 08/22/19 10:15 Last Infusion: 08/22/19 11:33 Dose: 0 mls/hr Documented by: [id number] Cosigned by: [id number] Infusion: 08/22/19 10:12 Dose: 0 mls/hr Documented by: [id number] Admin: 08/22/19 03:22 Dose: 125 mls/hr Documented by: [id number] Infusion: 08/22/19 03:22 Dose: 125 mls/hr Documented by: [id number] Infusion: 08/21/19 19:30 Dose: 125 mls/hr Documented by: [id number] Infusion: 08/21/19 18:59 Dose: 0 mls/hr Documented by: [id number] Admin: 08/21/19 18:57 Dose: 125 mls/hr Documented by: [id number] Lidocaine HCl (Xylocaine 2% Jelly) Confirm Administered Dose 5 ml .ROUTE .STK- MED ONE Stop: 08/21/19 15:08 Last Admin: 08/21/19 15:48 Dose: 5 ml Documented by: [id number] Montelukast Sodium (Singulair) 10 mg PO HS BENITO Stop: 09/20/19 20:59 Last Admin: 08/21/19 22:22 Dose: Not Given Documented by: [id number] Pantoprazole Sodium (Protonix) 40 mg PO QA BENITO Stop: 09/21/19 08:59 Last Admin: 08/22/19 09:01 Dose: 40 mg Documented by: [id number] Medical Decision Making Differential Diagnosis Differential diagnosis: urinary retention, enlarged prostate, UTI, hydronephrosis, renal failure, electrolyte imbalance, dehydration Medical Records Attestation: I reviewed the patient's medical records. Home Medications Current Medication List: was personally reviewed by me Laboratory Data Attestation: I reviewed the patient's lab results. Result diagrams: 08/22/19 05:06 08/22/19 05:06 Lab Results 08/21/19 08/21/19 08/21/19 Range/Units 15:30 15:50 15:50 WBC 3.75 L (4.8-10.8) K/uL RBC 4.58 L (4.7-6.1) M/uL Hgb 13.0 L (14.0-18.0) g/dL Hct 39.4 L (42-52) % MCV 86.0 (80-100) fL MCH 28.4 (25-34) pg MCHC 33.0 (32-36) g/dL RDW Std Deviation 43.1 (36.4-46.3) fL RDW Coeff of Froylan 13.8 (11.5-14.5) % Plt Count 279 (130-400) K/uL MPV 9.9 (7.4-10.4) fL Immature Gran % (Auto) 0.3 % Neut % (Auto) 69.3 % Lymph % (Auto) 17.1 % [place] % (Auto) 9.1 % Eos % (Auto) 3.7 % Baso % (Auto) 0.5 % Immature Gran # (Auto) 0.01 (0.00-0.02) K/uL Neut # (Auto) 2.60 (1.4-6.5) K/uL Lymph # (Auto) 0.64 L (1.2-3.4) K/uL [place] # (Auto) 0.34 (0.11-0.59) K/uL Eos # (Auto) 0.14 (0-0.5) K/uL Baso # (Auto) 0.02 (0-0.2) K/uL Sodium 139 (136-145) mmol/L Potassium 4.1 (3.5-5.1) mmol/L Chloride 107 (98-107) mmol/L Carbon Dioxide 26 (21-32) mmol/L Anion Gap 6.0 (3-11) BUN 24 H (7-18) mg/dl Creatinine 2.36 H D (0.6-1.4) mg/dl Est Cr Clr Drug Dosing 36.8 ml/min Est GFR ( Amer) 32.0 Est GFR (Non-Af Amer) 27.7 BUN/Creatinine Ratio 10.0 (10-20) Glucose 95 (70-99) mg/dl Calcium 9.7 (8.5-10.1) mg/dl Phosphorus (2.5-4.9) mg/dl Magnesium 2.2 (1.8-2.4) mg/dl Total Bilirubin 0.6 (0.2-1) mg/dl AST 9 L (15-37) U/L ALT 22 (12-78) U/L Alkaline Phosphatase 92 (45-117) U/L Total Protein 8.1 (6.4-8.2) gm/dl Albumin 4.3 (3.4-5.0) gm/dl Globulin 3.8 (2.5-4.0) gm/dl Albumin/Globulin Ratio 1.1 (0.9-2) Urine Color Yellow Urine Appearance Clear (Clear) Urine pH 7.5 (4.5-7.5) Ur Specific [place] 1.008 (1.000-1.030) Urine Protein Negative (Negative) Urine Glucose (UA) Negative (Negative) Urine Ketones Negative (Negative) Urine Blood Negative (Negative) Urine Nitrite Negative (Negative) Urine Bilirubin Negative (Negative) Urine Urobilinogen Negative (Negative) Ur Leukocyte Esterase Negative (Negative) 08/21/19 Range/Units 15:50 WBC (4.8-10.8) K/uL RBC (4.7-6.1) M/uL Hgb (14.0-18.0) g/dL Hct (42-52) % MCV (80-100) fL MCH (25-34) pg MCHC (32-36) g/dL RDW Std Deviation (36.4-46.3) fL RDW Coeff of Froylan (11.5-14.5) % Plt Count (130-400) K/uL MPV (7.4-10.4) fL Immature Gran % (Auto) % Neut % (Auto) % Lymph % (Auto) % [place] % (Auto) % Eos % (Auto) % Baso % (Auto) % Immature Gran # (Auto) (0.00-0.02) K/uL Neut # (Auto) (1.4-6.5) K/uL Lymph # (Auto) (1.2-3.4) K/uL [place] # (Auto) (0.11-0.59) K/uL Eos # (Auto) (0-0.5) K/uL Baso # (Auto) (0-0.2) K/uL Sodium (136-145) mmol/L Potassium (3.5-5.1) mmol/L Chloride (98-107) mmol/L Carbon Dioxide (21-32) mmol/L Anion Gap (3-11) BUN (7-18) mg/dl Creatinine (0.6-1.4) mg/dl Est Cr Clr Drug Dosing ml/min Est GFR ( Amer) Est GFR (Non-Af Amer) BUN/Creatinine Ratio (10-20) Glucose (70-99) mg/dl Calcium (8.5-10.1) mg/dl Phosphorus 3.4 (2.5-4.9) mg/dl Magnesium (1.8-2.4) mg/dl Total Bilirubin (0.2-1) mg/dl AST (15-37) U/L ALT (12-78) U/L Alkaline Phosphatase (45-117) U/L Total Protein (6.4-8.2) gm/dl Albumin (3.4-5.0) gm/dl Globulin (2.5-4.0) gm/dl Albumin/Globulin Ratio (0.9-2) Urine Color Urine Appearance (Clear) Urine pH (4.5-7.5) Ur Specific [place] (1.000-1.030) Urine Protein (Negative) Urine Glucose (UA) (Negative) Urine Ketones (Negative) Urine Blood (Negative) Urine Nitrite (Negative) Urine Bilirubin (Negative) Urine Urobilinogen (Negative) Ur Leukocyte Esterase (Negative) Blood Pressure Blood Pressure Findings: Elevated blood pressure Blood Pressure Disposition: further management by hospitalist AI Narrative There is no leukocytosis or concerning anemia. Renal panel testing shows a high creatinine at 2.36, this is significantly higher than his baseline creatinine numbers. Potassium was normal. No concerning liver enzyme elevation. Urinalysis does not show evidence for infection, no hematuria. I did review the ultrasound performed yesterday. This shows significant hydronephrosis and bladder distention. Upon presentation, the patient had abdominal distention. Bladder scan showed over 1000 cc. A Hilario catheter was placed and around 3.4 L of urine drained. Patient feels markedly better. Given the acute kidney injury, given the bladder outlet obstruction, I do think a hospital stay is warranted. Patient was given 1 L of IV saline for hydration. I spoke to the patient, I talked with the case management assistant. The on-call hospitalist was consulted. I suspect his creatinine will improve now that the obstruction has been bypassed with the Hilario. Impression & Plan Acute kidney injury, Acute urinary retention, Hydronephrosis, Bladder outlet obstruction Discharge Plan Visit Data *Final* Discharge Date/Time: 08/21/19 18:06 Chief Complaint: Urinary Symptoms Stated Complaint: BLADDER, KIDNEY PAIN ED Provider: Jonas William Discharge Problem: Acute kidney injury, Acute urinary retention, Hydronephrosis, Bladder outlet obstruction Patient Disposition: Admitted As Inpatient Discharge Instructions Interventions: ED Discharge Assessment Last Done: 08/21/19 18:06 Discharge Problem: Hydronephrosis Qualifiers: Hydronephrosis type: unspecified Qualified Code(s): N13.30 - Unspecified hydronephrosis The scribe's documentation has been prepared under my direction and personally reviewed by me in its entirety. I confirm that the note above accurately reflects all work, treatment, procedures, and medical decision making performed by me.
[2019-08-21] MEDS ORDERED: ACETAMINOPHEN 325 MG TAB PO PRN (18:16)
[2019-08-21] MEDS ORDERED: ONDANSETRON INJ 2 MG/ML 2 ML VIAL IV PRN (18:16)
[2019-08-21] MEDS: SODIUM CHLORIDE 0.9% 1000ML 1,000 ML IV SCH (18:57)
[2019-08-21] MEDS ORDERED: ALBUTEROL HFA 8 GM INHALER INH PRN (19:05)
[2019-08-21] MEDS ORDERED: guaiFENesin 600 MG TABCR PO PRN (19:05)
[2019-08-21] MEDS: BUDESONIDE 0.5 MG/2 ML VIAL (PULMICORT) INH SCH (19:54)
[2019-08-21] MEDS: TAMSULOSIN HCL 0.4 MG CAP PO SCH (20:05)
[2019-08-21] MEDS ORDERED: METOPROLOL SUCC 25MG EXT REL TAB PO SCH (20:30)
[2019-08-21] MEDS ORDERED: MONTELUKAST SODIUM 10 MG TABLET PO SCH (21:00)
[2019-08-21] MEDS: VERAPAMIL HCL 120 MG TABCR PO SCH (22:23)
[2019-08-21] MEDS: FLUTICASONE/SALMETEROL 250/50 (ADVAIR) 14 PUFF/1 INHALER INH SCH (22:25)
[2019-08-21] MEDS: METOPROLOL SUCC 25MG EXT REL TAB PO SCH (22:40)
[2019-08-22] MEDS: FEXOFENADINE 60 MG TAB PO SCH ×3 (01:38→22:10)
[2019-08-22] MEDS: SODIUM CHLORIDE 0.9% 1000ML 1,000 ML IV SCH (03:22)
[2019-08-22] MEDS ORDERED: Nursing to Pharmacy Communication ONE (05:25)
[2019-08-22 05:33] LABS: Basophils # (auto) 0.01 K/uL (0-0.2); Basophils % (auto) 0.1 %; Eosinophils # (auto) 0.04 K/uL (0-0.5); Eosinophils % (auto) 0.4 %; Hematocrit (blood only) 41.8 % (42-52); Hemoglobin 13.8 g/dL (14.0-18.0); Immature Granulocytes # (auto) 0.02 K/uL (0.00-0.02); Immature Granulocytes % (auto) 0.2 %; Lymphocytes # (auto) 0.54 K/uL (1.2-3.4); Lymphocytes % (auto) 5.3 %; Mean Corpuscular Hemoglobin 28.6 pg (25-34); Mean Corpuscular Volume 86.7 fL (80-100); Mean Platelet Volume 10.1 fL (7.4-10.4); Monocytes # (auto) 0.63 K/uL (0.11-0.59); Monocytes % (auto) 6.2 %; Neutrophils # (auto) 8.93 K/uL (1.4-6.5); Neutrophils % (auto) 87.8 %; Platelet Count 308 K/uL (130-400); RDW Coefficient of Variation 13.7 % (11.5-14.5); RDW Standard Deviation 43.6 fL (36.4-46.3); Red Blood Count 4.82 M/uL (4.7-6.1); White Blood Count 10.17 K/uL (4.8-10.8)
[2019-08-22] MEDS: BUDESONIDE 0.5 MG/2 ML VIAL (PULMICORT) INH SCH (05:35)
[2019-08-22 06:10] LABS: BUN Creatinine Ratio 10.9 (10-20); Calcium 8.8 mg/dl (8.5-10.1); Creatinine Clr Calc Pharmacy 37.8 ml/min; Est GFR (African American) 33.1; Est GFR (Non-African American) 28.5; Potassium 4.7 mmol/L (3.5-5.1)
[2019-08-22] MEDS ORDERED: METOPROLOL SUCC 25MG EXT REL TAB PO SCH (09:00)
[2019-08-22] MEDS ORDERED: PANTOprazole 40 MG TAB PO SCH (09:00)
[2019-08-22] MEDS: FLUTICASONE/SALMETEROL 250/50 (ADVAIR) 14 PUFF/1 INHALER INH SCH ×2 (09:01→22:08)
[2019-08-22] MEDS: MONTELUKAST SODIUM 10 MG TABLET PO SCH (09:01)
--- NOTE | 2019-08-22 09:23 | Urology Consultation ---
Date of Consultation August 22, 2019 Assessment & Plan (1) Hydronephrosis: 64yo M with AUR, FAHAD. Cr 2.36 upon arrival, essentially unchanged this AM. Will change diet to vegetarian, no caffiene per patient request. Continue hilario for maximal drainage. Continue flomax. Monitor daily creatinine. Discuss options moving forward. He wishes to establish with our service locally, to undergo cystoscopy evaluation for potential TURP vs open prostatectomy given very massive prostate (reportedly 100gm per notes). Will discuss case with Dr. Montalvo today. No acute intervention required at this time. Will continue to follow. History of Present Illness Reason for Consultation: AUR, FAHAD, BPH Requesting Physician: Dr. Kumar Attending Physician: Fely Kumar MD History of Present Illness 64yo M admitted through [facility] ER at request of primary care for evaluation of acute urinary retention. Difficult to obtain HPI due to patient's pressured speech and domination of conversation. Per PCP notes, pt was encouraged to take flomax which he was prescribed and not taking. He then initiated a few days ago which has improved his voiding subjectively. Pt underwent abd US for routine screening ordered by PCP on 08/21, found to have acutely distended bladder ~3L, with moderate to severe bilateral hydronephrosis (limited scan). Pt has long hx of elevated PSA, follows with [facility]. Last visit 06/13/19, past notes reviewed. MRI reveals 100gm prostate, benign. Most recent PSA 9.2 (02/2019), 6.9 (2017), has been as high as 13 in the past. Pt states he is only seeing them for prostate cancer screening. Has never had workup for BPH, no previous cystoscopy. Pt state he feels much better. He states this could have been going on for a long time since he was voiding spontaneously. He states "this through everyone off including myself". Hilario catheter was placed by ER without difficulty. He is very concerned about his diet and kidney function. Wishes to have a vegetarian diet while inpatient. at bedside, states she as a followup with [facility] in August, not patient. Allergies Allergy/AdvReac Type Severity Reaction Status Date / Time ibuprofen Allergy Severe THROAT Verified 08/21/19 16:25 SWELLING NSAIDS (Non-Steroidal Allergy Severe ANAPHYLAXIS Verified 08/21/19 16:25 Anti-Inflamma aspirin Allergy Mild Verified 08/21/19 16:25 shellfish derived Allergy crab and Verified 08/21/19 16:25 shrimp for sure Home Medications Home Medications Medication Instructions Recorded Confirmed Type albuterol sulfate HFA 90 2 puffs INHALATION Q4H PRN #1 gm 05/17/19 08/21/19 History mcg/actuation aerosol inhaler budesonide 0.5 mg/2 mL suspension 0.5 mg INHALATION BID #90 ml 05/17/19 08/21/19 History for nebulization epinephrine 0.3 mg/0.3 mL 0.3 ml IM PRN ea 05/17/19 08/21/19 History injection, auto-injector guaifenesin ER 600 mg tablet, 600 mg PO Q12H PRN #20 tab 05/17/19 08/21/19 History extended release 12 hr montelukast 10 mg tablet 10 mg PO HS #90 tab 05/17/19 08/21/19 History omeprazole 20 mg capsule,delayed 20 mg PO QAM #90 cap 05/17/19 08/21/19 History release fluticasone 250 mcg-salmeterol 50 1 puffs INH BID #60 ea 08/07/19 08/21/19 Rx mcg/dose blistr powdr for inhalation fexofenadine 90 mg PO BID 08/21/19 08/21/19 History metoprolol succinate 12.5 mg PO HS 08/21/19 08/21/19 History tamsulosin 0.4 mg capsule 0.4 mg PO QDD 08/21/19 08/21/19 History verapamil 120 mg PO HS 08/21/19 08/21/19 History Patient History Medical History BPH (benign prostatic hyperplasia) GERD (gastroesophageal reflux disease) Hyperlipidemia Hypothyroidism Atrial fib/flutter, transient Surgical History H/O colonoscopy H/O hemorrhoidectomy H/O hernia repair H/O sinus surgery History of appendectomy Family History Mother Patient's mother is Social History Preferred Language: Yi Communication Ability: Effective Visual Impairment: No Limitations Hearing Ability: Normal [employer] Salesperson Required: No Beliefs That Will Affect Care: None marital status: Current Living Situation: Spouse current occupational status: employed Other Information That Helps Us Care for You: No Feels Safe at Home: Yes Safety Concerns: Feels Safe At This Time Smoking Status: Former smoker Hx Alcohol Use: Yes Alcohol type: beer Hx Substance Use: No Review of Systems Review of Systems: All systems reviewed & are unremarkable except as noted in HPI & below Physical Exam Constitutional: no acute distress and not ill appearing Eyes: no nystagmus ENMT: Ears: no hearing impairment Neck: trachea midline Respiratory: no respiratory distress and no cough Cardiovascular: Vessels: no JVD Chest (Breasts): Chest: normal inspection of chest Gastrointestinal (Abdomen): Inspection/Auscultation: abdomen not distended and no abdominal edema Percussion/Palpation: abdomen soft; abdomen nontender Musculoskeletal: Head/Neck/Chest: normocephalic and head atraumatic Skin: no rashes, warm and dry Neurologic: awake; not confused and not obtunded Psychiatric: Orientation: alert and oriented x 3 Eye Contact: good eye contact Affect: no depressed affect Genitourinary: bladder normal to inspection; no CVA tenderness hilario draining adequate amounts of light pink urine, minimal clots noted Lymphatic: no lymphadenopathy and no lymphedema Results & Data Vital Signs (Past 12 Hours) Vital Signs Temp Pulse Pulse Resp BP Pulse Ox 08/22/19 07:50 36.7 C 66 17 132/70 97 08/22/19 03:18 36.8 C 80 16 124/83 95 08/22/19 02:06 155/92 H 08/21/19 23:33 36.9 C 88 16 158/98 H 96 08/21/19 22:24 93 H 162/92 H PG Care Time/CCT Total # of Minutes Spent Total Time Spent with Patient: Total time spent is greater than 50% in coordination of care (as documented) at patient's floor/unit and/or counseling patient: (1) Hydronephrosis Hydronephrosis type: unspecified Qualified Code(s): N13.30 - Unspecified hydronephrosis
--- NOTE | 2019-08-22 12:39 | Hospitalist Progress Note ---
Date of Service August 22, 2019 Assessment & Plan (1) Acute urinary retention: - Long standing h/o BPH, bladder outlet obstruction with enlarged prostate and urinary retention -- follows at [facility]. - Had 3.4L removed following hilario placement in the ER; continue hilario for accurate I/Os. - Continue Flomax 0.4 mg PO daily. - Received NS at admission, will hold further IV fluids and encourage PO intake. - Urology consulted, pt. would like to establish care with local physician. Will need cystoscopy and potential TURP vs. open prostatectomy due to very large prostate (possibly 100 gm). (2) Acute kidney injury: - Creatinine was 2.73 on admission, likely post obstructive uropathy in setting of issues listed above. - Very minimal improvement in Cr following IV fluid hydration and hilario placement. - Will hold IV fluids and monitor renal function daily. - Avoid nephrotoxic meds. (3) Hydronephrosis: - Bilateral mod to severe hydronephrosis noted on renal US on admission in setting of bladder outlet obstruction with prostatomegaly. - Urology following -- will require surgical intervention as noted above. (4) Bladder outlet obstruction: - Secondary to BPH. Patient follows at [facility] with urology. - Continue Flomax 0.4 mg daily. - Requested records from [facility]. (5) Hematuria: - Pt. has bloody output with clots reported -- possibly traumatic related to very large prostate. - Monitor CBC daily -- holding pharmacologic ppx. (6) Asthma, moderate persistent: - Chronic, no acute exacerbation noted. - Albuterol inhaler qAM and prn, Advair diskus BID, Singulair 10 mg daily, Ana María BID and Pulmicort BID. (7) Gastroesophageal reflux disease: - PPI daily. (8) History of atrial fibrillation: - H/o A. fib, currently in NSR. - Continue Verapamil and Metoprolol as prescribed. - Not currently on anticoagulation - may be related to bleeding in setting of enlarged prostate, will investigate. DVT ppx: SCDs; holding pharmacologic ppx due to hematuria. Dispo: Med/surg for evaluation of urinary retention; continue to monitor renal function over next 24 hours. Supervising Physician Co-Signing Physician Notes PA Supervision Note: I did not personally see or examine the patient today, but I verified all fraser points of WAYNE David's assessment and plan with the following exceptions/additions: None Subjective Pt. is doing well overall - has had good urine output from hilario, continues to have hematuria related to trauma. Denies chest pain, SOB. Is eating/drinking with adequate fluid intake. Review of Systems Review of Systems: All systems reviewed & are unremarkable except as noted in HPI & below Constitutional: no fever, no chills, no fatigue, no weakness and no anorexia Respiratory: no cough, no dyspnea, no dyspnea on exertion and no wheezing Cardiovascular: no chest pain, no palpitations and no edema Gastrointestinal: no abdominal pain, no nausea, no vomiting, no constipation and no diarrhea/loose stools Genitourinary: + difficulty urinating and + hematuria Musculoskeletal: no back pain and no joint pain Physical Exam Physical Exam: General: Resting comfortably HEENT: NC/AT; PERRLA with EOMI; [place] conjunctiva, MMM. No erythema of posterior pharynx Neck: Supple and nontender Cardiac: RRR Lungs: CTA bilaterally Abdomen: Bowel normoactive X 4; Nontender to palpation : Hilario with red urine output. Extremities: Warm. No edema present Neuro: No focal weakness Skin: No rash Results & Data Vital Signs (Past 12 Hours) Vital Signs Temp Pulse Pulse Resp BP Pulse Ox 08/22/19 07:50 36.7 C 66 17 132/70 97 08/22/19 03:18 36.8 C 80 16 124/83 95 08/22/19 02:06 155/92 H Laboratory Results 08/22/19 08/22/19 08/21/19 Range/Units 05:06 05:06 15:50 WBC 10.17 (4.8-10.8) K/uL RBC 4.82 (4.7-6.1) M/uL Hgb 13.8 L (14.0-18.0) g/dL Hct 41.8 L (42-52) % MCV 86.7 (80-100) fL MCH 28.6 (25-34) pg MCHC 33.0 (32-36) g/dL RDW Std Deviation 43.6 (36.4-46.3) fL RDW Coeff of Froylan 13.7 (11.5-14.5) % Plt Count 308 (130-400) K/uL MPV 10.1 (7.4-10.4) fL Immature Gran % (Auto) 0.2 % Neut % (Auto) 87.8 % Lymph % (Auto) 5.3 % Bryan % (Auto) 6.2 % Eos % (Auto) 0.4 % Baso % (Auto) 0.1 % Immature Gran # (Auto) 0.02 (0.00-0.02) K/uL Neut # (Auto) 8.93 H (1.4-6.5) K/uL Lymph # (Auto) 0.54 L (1.2-3.4) K/uL Bryan # (Auto) 0.63 H (0.11-0.59) K/uL Eos # (Auto) 0.04 (0-0.5) K/uL Baso # (Auto) 0.01 (0-0.2) K/uL Sodium 137 (136-145) mmol/L Potassium 4.7 (3.5-5.1) mmol/L Chloride 106 (98-107) mmol/L Carbon Dioxide 24 (21-32) mmol/L Anion Gap 7.0 (3-11) BUN 25 H (7-18) mg/dl Creatinine 2.30 H (0.6-1.4) mg/dl Est Cr Clr Drug Dosing 37.8 ml/min Est GFR ( Amer) 33.1 Est GFR (Non-Af Amer) 28.5 BUN/Creatinine Ratio 10.9 (10-20) Glucose 141 H (70-99) mg/dl Calcium 8.8 (8.5-10.1) mg/dl Phosphorus 3.4 (2.5-4.9) mg/dl Magnesium (1.8-2.4) mg/dl Total Bilirubin (0.2-1) mg/dl AST (15-37) U/L ALT (12-78) U/L Alkaline Phosphatase (45-117) U/L Total Protein (6.4-8.2) gm/dl Albumin (3.4-5.0) gm/dl Globulin (2.5-4.0) gm/dl Albumin/Globulin Ratio (0.9-2) Urine Color Urine Appearance (Clear) Urine pH (4.5-7.5) Ur Specific [place]pin (1.000-1.030) Urine Protein (Negative) Urine Glucose (UA) (Negative) Urine Ketones (Negative) Urine Blood (Negative) Urine Nitrite (Negative) Urine Bilirubin (Negative) Urine Urobilinogen (Negative) Ur Leukocyte Esterase (Negative) 08/21/19 08/21/19 08/21/19 Range/Units 15:50 15:50 15:30 WBC 3.75 L (4.8-10.8) K/uL RBC 4.58 L (4.7-6.1) M/uL Hgb 13.0 L (14.0-18.0) g/dL Hct 39.4 L (42-52) % MCV 86.0 (80-100) fL MCH 28.4 (25-34) pg MCHC 33.0 (32-36) g/dL RDW Std Deviation 43.1 (36.4-46.3) fL RDW Coeff of Froylan 13.8 (11.5-14.5) % Plt Count 279 (130-400) K/uL MPV 9.9 (7.4-10.4) fL Immature Gran % (Auto) 0.3 % Neut % (Auto) 69.3 % Lymph % (Auto) 17.1 % Bryan % (Auto) 9.1 % Eos % (Auto) 3.7 % Baso % (Auto) 0.5 % Immature Gran # (Auto) 0.01 (0.00-0.02) K/uL Neut # (Auto) 2.60 (1.4-6.5) K/uL Lymph # (Auto) 0.64 L (1.2-3.4) K/uL Bryan # (Auto) 0.34 (0.11-0.59) K/uL Eos # (Auto) 0.14 (0-0.5) K/uL Baso # (Auto) 0.02 (0-0.2) K/uL Sodium 139 (136-145) mmol/L Potassium 4.1 (3.5-5.1) mmol/L Chloride 107 (98-107) mmol/L Carbon Dioxide 26 (21-32) mmol/L Anion Gap 6.0 (3-11) BUN 24 H (7-18) mg/dl Creatinine 2.36 H D (0.6-1.4) mg/dl Est Cr Clr Drug Dosing 36.8 ml/min Est GFR ( Amer) 32.0 Est GFR (Non-Af Amer) 27.7 BUN/Creatinine Ratio 10.0 (10-20) Glucose 95 (70-99) mg/dl Calcium 9.7 (8.5-10.1) mg/dl Phosphorus (2.5-4.9) mg/dl Magnesium 2.2 (1.8-2.4) mg/dl Total Bilirubin 0.6 (0.2-1) mg/dl AST 9 L (15-37) U/L ALT 22 (12-78) U/L Alkaline Phosphatase 92 (45-117) U/L Total Protein 8.1 (6.4-8.2) gm/dl Albumin 4.3 (3.4-5.0) gm/dl Globulin 3.8 (2.5-4.0) gm/dl Albumin/Globulin Ratio 1.1 (0.9-2) Urine Color Yellow Urine Appearance Clear (Clear) Urine pH 7.5 (4.5-7.5) Ur Specific [place] 1.008 (1.000-1.030) Urine Protein Negative (Negative) Urine Glucose (UA) Negative (Negative) Urine Ketones Negative (Negative) Urine Blood Negative (Negative) Urine Nitrite Negative (Negative) Urine Bilirubin Negative (Negative) Urine Urobilinogen Negative (Negative) Ur Leukocyte Esterase Negative (Negative) PG Care Time/CCT Total # of Minutes Spent Total Time Spent with Patient: Total time spent is greater than 50% in coordination of care (as documented) at patient's floor/unit and/or counseling patient: (1) Hydronephrosis Hydronephrosis type: unspecified Qualified Code(s): N13.30 - Unspecified hydronephrosis (2) Hematuria Hematuria type: gross Qualified Code(s): R31.0 - Gross hematuria (3) Asthma, moderate persistent Asthma complication type: uncomplicated Qualified Code(s): J45.40 - Moderate persistent asthma, uncomplicated (4) Gastroesophageal reflux disease Esophagitis presence: esophagitis presence not specified Qualified Code(s): K21.9 - Gastro-esophageal reflux disease without esophagitis
[2019-08-22] MEDS ORDERED: TAMSULOSIN HCL 0.4 MG CAP PO SCH (16:30)
[2019-08-22] MEDS: TAMSULOSIN HCL 0.4 MG CAP PO SCH (19:22)
[2019-08-22] MEDS: METOPROLOL SUCC 25MG EXT REL TAB PO SCH (22:09)
[2019-08-22] MEDS: VERAPAMIL HCL 120 MG TABCR PO SCH (22:09)
[2019-08-22] MEDS: BUDESONIDE 0.5 MG/2 ML VIAL (PULMICORT) SCH (22:10)
[2019-08-23 05:47] LABS: Hematocrit (blood only) 39.4 % (42-52); Hemoglobin 13.1 g/dL (14.0-18.0); Mean Corpuscular Hemoglobin 28.7 pg (25-34); Mean Corpuscular Hgb Conc 33.2 g/dL (32-36); Mean Corpuscular Volume 86.4 fL (80-100); Platelet Count 274 K/uL (130-400); RDW Coefficient of Variation 13.7 % (11.5-14.5); RDW Standard Deviation 43.5 fL (36.4-46.3); Red Blood Count 4.56 M/uL (4.7-6.1); White Blood Count 7.97 K/uL (4.8-10.8)
[2019-08-23 06:13] LABS: BUN Creatinine Ratio 11.2 (10-20); Calcium 8.8 mg/dl (8.5-10.1); Creatinine Clr Calc Pharmacy 42.6 ml/min; Est GFR (African American) 38.2; Potassium 4.6 mmol/L (3.5-5.1)
--- NOTE | 2019-08-23 08:24 | Urology Progress Note ---
Date of Service August 23, 2019 Assessment & Plan (1) Hydronephrosis: 64yo M with BPH, elevated PSA, admitted with AUR, FAHAD. Cr continues to improve as anticipated. Continue hilario for maximal drainage. Continue flomax. Discussed addition of finasteride to regimen. Pt is interested in pursuing, will order. Discussed patient care with Dr. Montalvo yesterday. He does not feel pt requires any further imaging during this admission. Will proceed with outpatient TOV in 1-2 weeks, followed by outpatient cystoscopy next available. Okay to discharge home with hilario intact per perspective. Please provide Rx for tamsulosin and finasteride for discharge. Thank you for allowing us to participate in the acute care of Mr. Austin. Please reconsult us with additional questions, concerns or changes in patient status. Subjective 64yo M with BPH, elevated PSA, admitted with AUR, FAHAD. Pt doing well today. He does acknowledge some suprapubic pain with certain positions, otherwise tolerating catheter well. He is concerned about potential infection with hilario in place. Tolerating PO well, changed to vegetarian diet per his request. Chart review - Cr improved to 2.04 today. Hilario draining adequate amounts of pink tinged with light clots. No irrigation needed. VSS, afebrile. Review of Systems Review of Systems: All systems reviewed & are unremarkable except as noted in HPI & below Physical Exam Constitutional: no acute distress and not ill appearing Eyes: no nystagmus ENMT: Ears: no hearing impairment Neck: trachea midline Respiratory: no respiratory distress and no cough Cardiovascular: Vessels: no JVD Chest (Breasts): Chest: normal inspection of chest Gastrointestinal (Abdomen): Inspection/Auscultation: abdomen not distended and no abdominal edema Percussion/Palpation: abdomen soft; abdomen nontender Musculoskeletal: Head/Neck/Chest: normocephalic and head atraumatic Skin: no rashes, warm and dry Neurologic: awake; not confused and not obtunded Psychiatric: Orientation: alert and oriented x 3 Eye Contact: good eye contact Affect: no depressed affect Genitourinary: no CVA tenderness hilario draining pink tinged, scant clots. Lymphatic: no lymphadenopathy and no lymphedema Results & Data Vital Signs (Past 12 Hours) Vital Signs Temp Pulse Pulse Resp BP BP Pulse Ox 08/23/19 07:04 36.8 C 83 16 144/89 H 96 08/23/19 04:49 152/80 H 08/22/19 23:29 36.9 C 88 16 166/99 H 97 08/22/19 22:08 87 179/107 H PG Care Time/CCT Total # of Minutes Spent Total Time Spent with Patient: Total time spent is greater than 50% in coordination of care (as documented) at patient's floor/unit and/or counseling patient: (1) Hydronephrosis Hydronephrosis type: unspecified Qualified Code(s): N13.30 - Unspecified hydronephrosis
[2019-08-23] MEDS ORDERED: ALBUTEROL HFA 8 GM INHALER INH SCH (09:00)
[2019-08-23] MEDS ORDERED: OMEPRAZOLE 20 MG PO SCH (09:00)
[2019-08-23] MEDS: FEXOFENADINE 60 MG TAB PO SCH (09:06)
[2019-08-23] MEDS: MONTELUKAST SODIUM 10 MG TABLET PO SCH (09:07)
--- NOTE | 2019-08-23 10:18 | Nephrology Consultation ---
Date of Consultation August 23, 2019 Assessment & Plan (1) Acute kidney injury: José was admitted to the hospital as a direct admit from his PCP office as he was found to have urinary retention and acute kidney injury. Ultrasound showed bilateral hydronephrosis with bladder outlet obstruction and had 3.5 L of urine output after Aguirre catheter was placed in emergency room. Found to have acute kidney injury with creatinine 2.7 with prior normal kidney function, baseline creatinine was 0.9 in July 2018. Urine analysis was negative for hematuria, proteinuria or pyuria. Currently, blood pressure, volume status and other electrolytes acceptable. No history of nephrotoxic medication exposure or other systemic symptoms. Currently he is asymptomatic. Renal function started to improve slowly and creatinine down to 2.0. Acute kidney injury in the setting bilateral hydronephrosis, renal function started to improve as obstruction released with Aguirre catheter. --expect renal function to continue to improve as patient did have any other risk factor for CKD are rapid worsening of renal function. However, renal function has been improving slowly and considering prolonged obstruction patient may have some irreversible damage and creatinine may stabilize somewhat higher than his baseline we mild renal impairment going forward. --Advised patient to avoid all NSAIDs, follow low-salt diet and keep hydrated and avoid volume depletion --Discussed in detail with the patient and and explained the current status of his kidney function --if patient gets discharged today recommend follow-up lab tomorrow and in a week and follow-up in outpatient CKD clinic in next few weeks Will follow Thank you for allowing me to participate in your patient's care. It was a pleasure to see Med History of Present Illness Reason for Consultation: Acute kidney injury. Attending Physician: Fely Kumar MD History of Present Illness Med Austin is a 64-year-old gentlemen with past medical history significant for hypertension and BPH admitted to the hospital with urinary retention and acute kidney injury. Nephrology consult was requested to manage acute kidney injury. Electronic medical records including labs and imaging are reviewed in detail during patient's visit. Med has been noticing abdominal distention for quite some time although he has been urinating normally. He went to see his PCP 2 days ago when ultrasound showed bilateral hydronephrosis with distention of bladder and more than 3 L of urinary retention and and lab showed acute kidney injury. He was admitted for further management. On admission creatinine was 2.7 on 08/20/2019. Had a Aguirre catheter placed and 3.5 L of urine output. Abdomen and distension resolved and overall he has been feeling otherwise fine. He has not been taking any NSAID at home. Had normal renal function with creatinine of 0.9 lab done on 08/08/2018. Urinalysis on admission was negative for proteinuria hematuria pyuria. Renal function slowly started improving creatinine down to 2.0. Electrolyte acceptable. He is being followed by Urology. Otherwise asymptomatic. No recent change in weight or appetite. Patient is a nonsmoker and denies any family history of chronic kidney disease or end-stage renal disease. 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 Has hypertension and prior history of paroxysmal atrial fibrillation many years ago, has been verapamil and metoprolol. History of BPH, has been on Flomax. No history of diabetes or coronary artery disease. Allergies Allergy/AdvReac Type Severity Reaction Status Date / Time ibuprofen Allergy Severe THROAT Verified 08/21/19 16:25 SWELLING NSAIDS (Non-Steroidal Allergy Severe ANAPHYLAXIS Verified 08/21/19 16:25 Anti-Inflamma aspirin Allergy Mild Verified 08/21/19 16:25 shellfish derived Allergy crab and Verified 08/21/19 16:25 shrimp for sure Home Medications Home Medications Medication Instructions Recorded Confirmed Type albuterol sulfate HFA 90 2 puffs INHALATION Q4H PRN #1 gm 05/17/19 08/21/19 History mcg/actuation aerosol inhaler budesonide 0.5 mg/2 mL suspension 0.5 mg INHALATION BID #90 ml 05/17/19 08/21/19 History for nebulization epinephrine 0.3 mg/0.3 mL 0.3 ml IM PRN ea 05/17/19 08/21/19 History injection, auto-injector guaifenesin ER 600 mg tablet, 600 mg PO Q12H PRN #20 tab 05/17/19 08/21/19 History extended release 12 hr montelukast 10 mg tablet 10 mg PO HS #90 tab 05/17/19 08/21/19 History omeprazole 20 mg capsule,delayed 20 mg PO QAM #90 cap 05/17/19 08/21/19 History release fluticasone 250 mcg-salmeterol 50 1 puffs INH BID #60 ea 08/07/19 08/21/19 Rx mcg/dose blistr powdr for inhalation fexofenadine 90 mg PO BID 08/21/19 08/21/19 History metoprolol succinate 12.5 mg PO HS 08/21/19 08/21/19 History tamsulosin 0.4 mg capsule 0.4 mg PO QDD 08/21/19 08/21/19 History verapamil 120 mg PO HS 08/21/19 08/21/19 History Patient History Medical History BPH (benign prostatic hyperplasia) GERD (gastroesophageal reflux disease) Hyperlipidemia Hypothyroidism Atrial fib/flutter, transient Surgical History H/O colonoscopy H/O hemorrhoidectomy H/O hernia repair H/O sinus surgery History of appendectomy Family History Mother Patient's mother is Social History Preferred Language: Cuban Communication Ability: Effective Visual Impairment: No Limitations Hearing Ability: Normal Hydrological Technical Officer Required: No Beliefs That Will Affect Care: None marital status: Current Living Situation: Spouse current occupational status: employed Other Information That Helps Us Care for You: No Feels Safe at Home: Yes Safety Concerns: Feels Safe At This Time Smoking Status: Former smoker Hx Alcohol Use: Yes Alcohol type: beer Hx Substance Use: No Review of Systems Review of Systems: All systems reviewed & are unremarkable except as noted in HPI & below Physical Exam Constitutional: WD/WN, vitals as above well developed and well nourished; no acute distress Eyes: PERRL, conjunctivae normal, anicteric sclerae ENMT: external ear and nose normal, oropharynx normal Ears: no hearing impairment Neck: trachea midline Respiratory: normal respiratory effort, lungs clear to auscultation no cough Auscultation: no crackles, no rales and no wheezes Cardiovascular: RRR, no murmur, no edema Gastrointestinal (Abdomen): normal bowel sounds, soft, nontender, no hepatosplenomegaly Percussion/Palpation: abdomen nontender, no guarding and abdomen not rigid Musculoskeletal: Extremities: extremities normal to inspection Gait: normal gait Skin: no rashes, warm and dry Neurologic: moves all extremities and awake Psychiatric: A+Ox3, euthymic affect Results & Data Vital Signs (Past 12 Hours) Vital Signs Temp Pulse Resp BP BP Pulse Ox 08/23/19 07:04 36.8 C 83 16 144/89 H 96 08/23/19 04:49 152/80 H 08/22/19 23:29 36.9 C 88 16 166/99 H 97 PG Care Time/CCT Total # of Minutes Spent Total Time Spent with Patient: Total time spent is greater than 50% in coordination of care (as documented) at patient's floor/unit and/or counseling patient:
[2019-08-23 10:29] LABS: Appearance Urine Cloudy (Clear); Bilirubin Urine Negative (Negative); Blood Urine 3+ (Negative); Color Urine Red; Glucose Urine UA Negative (Negative); Ketones Urine Negative (Negative); Leukocyte Esterase Urine Trace (Negative); Nitrite Urine Negative (Negative); Protein Urine 3+ (Negative); Urobilinogen Urine Negative (Negative)
[2019-08-23 11:08] LABS: RBC Urine >30 /hpf (0-4)
[2019-08-23 11:11] LABS: Bacteria Urine 1+ (Negative); WBC Urine >30 /hpf (0-5)
[2019-08-23] MEDS: FLUTICASONE/SALMETEROL 250/50 (ADVAIR) 14 PUFF/1 INHALER INH SCH (11:44)
[2019-08-23] MEDS: BUDESONIDE 0.5 MG/2 ML VIAL (PULMICORT) SCH (11:44)
--- NOTE | 2019-08-23 16:32 | Discharge Summary ---
Date of Service August 23, 2019 Admission HPI Per Admitting Provider Med Austin is a 64-year-old male with history of BPH. He follows with urology at [facility]. States that approximately 7 years ago he was noted to have an elevation of PSA. He had a biopsy done at that time which was negative for malignancy. He has since had multiple MRIs to evaluate his prostate. Notes that the last MRI in late May revealed a very large volume prostate, approximately 100 cc. Also found to have bladder distention on the most recent MRI. He reports that his urinary symptoms have been overall fairly well controlled, possibly slightly worse over the last month. He has nocturia, gets up 2-5 times per night to urinate. Reports that his urinary stream is usually strong, sometimes a slow. He typically does not need to force start. He denies dysuria, fevers or chills, hematuria. He saw his PCP yesterday with inability to urinate, firm and distended abdomen. He had an ultrasound done which revealed bladder distention and hydroureter bilaterally. Creatinine found to be elevated 2.7 up from prior value of 0.9. Patient was started on Flomax yesterday. Has taken 1 dose. He came to the ER today where a Hilario catheter was placed and promptly drained 3.4 L of urine. Patient reports immediate improvement in his abdominal distention and discomfort. Does report some vague low back pain at present. Additionally complains of mild nausea from time to time. No additional complaints at this time. ER course: Hilario placed Admission Exam Per Admitting Provider General: patient resting comfortably, NAD, non-toxic in appearance, AA&O x 4 Skin: warm, dry, intact, no rashes or lesions HEENT: NC/AT, PERRL, EOMI, anicteric sclera, conjunctiva without injection, external ear normal to inspection and nontender, nares patent, moist mucus membranes, dentition intact, no oropharyngeal lesions, neck supple, trachea midline, no LAD, no thyromegaly, no JVD Heart: +S1/S2, regular, no m/r/g Lungs: equal air entry bilaterally, no rales/rhonchi/wheezes Abd: +BS, soft, NT/ND, no masses/organomegaly/ascites Ext: warm, 2+ pulses in UE/LE bilaterally, no clubbing/cyanosis or edema, Hilario in place with approximately 200 mL of pink-colored urine Neuro: nonfocal, patient AA&O x 4, speech intact, no facial droop, moving all extremities on command with equal strength 5/5 Principal Diagnosis Urinary Retention, Bladder outlet obstruction, FAHAD, Hydronephrosis Discharge Exam General: Resting comfortably HEENT: NC/AT; PERRLA with EOMI; Bala conjunctiva, MMM. No erythema of posterior pharynx Neck: Supple and nontender Cardiac: RRR Lungs: CTA bilaterally Abdomen: Bowel normoactive X 4; Tender to deep palpation over suprapubic region. : Hilario with pink output, no clots visualized. Extremities: Warm. No edema present Neuro: No focal weakness Skin: No rash Discharge Data Allergies Allergy/AdvReac Type Severity Reaction Status Date / Time ibuprofen Allergy Severe THROAT Verified 08/25/19 09:51 SWELLING NSAIDS (Non-Steroidal Allergy Severe ANAPHYLAXIS Verified 08/25/19 09:51 Anti-Inflamma aspirin Allergy Mild Verified 08/25/19 09:51 shellfish derived Allergy crab and Verified 08/25/19 09:51 shrimp for sure Consultations 08/21/19 15:43 ED Decision to Admit Stat 08/21/19 18:16 Consult Urology Routine 08/23/19 07:44 Consult Nephrology Routine Hospital Course (1) Acute urinary retention: Long standing h/o BPH, bladder outlet obstruction with enlarged prostate and urinary retention -- follows at [facility]. Had 3.4L removed following hilario placement in the ER; hilario was maintained for post-obstructive renal failure Flomax 0.4 mg PO daily; also added Finasteride. Received NS at admission, held continuous IV fluids. Urology consulted, pt. plans to establish care with local urologist. Will need cystoscopy and potential TURP vs. open prostatectomy due to very large prostate (possibly 100 gm). F/u in [place] and with our [facility] urology team. * Pt. did c/o suprapubic pain on day of discharge - may be related to trauma from hilario catheter insertion vs. obstructing clot vs. infection. U/a was ?infected, will follow UC tomorrow and hold abx at this time. Arranged home health for flushing of urinary catheter -- concern he may develop clots; home health service will provide catheter flushing supplies. (2) Acute kidney injury: Creatinine was 2.73 on admission, likely post obstructive uropathy in setting of issues listed above. Minimal improvement in Cr following IV fluid hydration and hilario placement. 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 Not prerenal on admission, no granular casts in UA, likely to have been a chronic rise in guest relations manager given that he got to 3.4L of retained urine before having symptoms Cr improved to 2 on day of discharge. Nephro consulted, appreciate input. Will f/u as outpt. Script provided for BMP tomorrow then q7days. (3) Hydronephrosis: Bilateral mod to severe hydronephrosis noted on renal US on admission in setting of bladder outlet obstruction with prostatomegaly. Urology following -- will require surgical intervention as noted above. (4) Bladder outlet obstruction: Secondary to BPH. Patient follows at [facility] with urology. Continued Flomax 0.4 mg daily. Added Finasteride. (5) Hematuria: Pt. has bloody output with clots reported -- possibly traumatic related to very large prostate. H/H remained stable. Flushed hilario on day of discharge with small clot removed; arranged home health for flushing supplies. (6) Asthma, moderate persistent: Chronic, no acute exacerbation noted. Albuterol inhaler qAM and prn, Advair diskus BID, Singulair 10 mg daily, Ana María BID and Pulmicort BID. (7) Gastroesophageal reflux disease: PPI daily. (8) HTN (hypertension): Continued Verapamil and Metoprolol. BP was elevated, 160-170's. Held med adjustments, can discuss with PCP. (9) History of atrial fibrillation: H/o A. fib, currently in NSR. Continued Verapamil and Metoprolol as prescribed. Not currently on anticoagulation - most recent episode of A. fib was in 2000 per patient, no further episodes in last 18 years. Discharged to home on 08/23/19. Total Time Total Time Spent Total Time Spent (In Minutes): >30 minutes Total Time Includes: Examination of the Patient, Discharge Planning, Medication Reconciliation, Communication With Other Providers and Other Discharge Plan Discharge Items Patient Disposition: Home - Home Health Services Reason For Visit: HYDRONEPHROSIS, URINARY RETENTION Discharge Diagnosis: Urinary Retention, Acute Kidney Injury, Hydronephrosis, Bladder Outlet Obstruction Goals: You have been hospitalized for an acute medical problem. During your stay at [facility], we have made an effort to correct the problem that brought you to the hospital while keeping you as comfortable as possible. Medications were used to bring your condition under control and your discharge instructions will include directions for any medications you should take after leaving the hospital. Please make sure you see your Primary Care Provider as part of your follow up plan. Activity: As commented below Exercise/Sports: Gradually increase as tolerated Non-emergency contact: Primary Care Provider and Urologist Call non-emergency contact if: you have any medication questions, your symptoms worsen, your pain is not controlled, your pain is worsening, your pain is unusual for you, your pain is concerning for you and you have a fever Follow-up/Referrals: Bree Monson MD [Physician] - 08/29/19 3:00 pm (Please, follow up at [facility] Nephrology Office with Dr. Monson on TuesdayAugust 29 at 3:00 pm. *The office is located in [address] of [facility] [place], next to this hospital. If you need to change this appointment, call the office at [phone].) Emil Montalvo DO [Physician] - (Please, follow up at [facility] Urology Office. *A nurse will contact you with the appointment information. The office is located at [address] [place] [address] in [place]. If you need to change this appointment, call the office at [phone].) Jaime Aguero DO [Primary Care Provider] - 08/31/19 3:00 pm (Please, follow up with Dr. Aguero on TuesdayAugust 31 at 3:00 pm. *If you need to change this appointment, call the office at [phone].) Diet: Vegetarian (Lacto-Ovo) Diet Comment: Per patient preference. Ambulatory Orders: Basic Metabolic Panel (Q7D) Timeframe: 20190824 Location: Determined by Patient Ordered By: Esperanza David Basic Metabolic Panel (Q7D) Timeframe: 20190831 Location: Determined by Patient Ordered By: Esperanza David Basic Metabolic Panel (Q7D) Timeframe: 20190907 Location: Determined by Patient Ordered By: Esperanza David Basic Metabolic Panel (Q7D) Timeframe: 20190914 Location: Determined by Patient Ordered By: Esperanza Jaureguitl Attending Provider Instructions: 1. Acute Urinary Retention * With hydronephrosis in setting of bladder outlet obstruction with enlarged prostate. * Please schedule a follow up with primary urologist this month. * A follow up appointment will be scheduled with our urology team at [facility] over the next 1-2 weeks to discuss possible procedure. * Please maintain hilario catheter at home. * Continue Flomax 0.4 mg daily and finasteride 5mg once daily to shrink your prostate. 2. Acute Renal Failure * Creatinine level is now trending down following placement of hilario catheter. * A script was provided for lab work -- please have labs collected tomorrow, TuesdayAug 24 then weekly. Results will be faxed to Dr. Monson from nephrology, Dr. Montalvo from urology and Carol Kline PA-C from primary care. * You will need to follow up with nephrology as an outpatient -- appointment will be scheduled in 2-3 weeks. 3. Hypertension * Please continue Metoprolol and Verapamil as prescribed. * Your blood pressure has been elevated during this admission - please continue to monitor blood pressure 1-2x/day at home. * Discuss blood pressure management with Carol Kline PA-C as an outpatient. Pending Studies at Discharge: No Stand-Alone Forms: My [facility] 5minutes, Smoking Cessation Medications and DC Order Prescriptions: New finasteride [Proscar] 5 mg Tablet 5 mg PO QAM Qty: 30 RF: 0 Continued albuterol sulfate 90 mcg/actuation HFA aerosol inhaler 2 puffs inhalation Q4H PRN (Reason: Shortness Of Breath) Qty: 1 RF: 0 budesonide 0.5 mg/2 mL suspension for nebulization 0.5 mg inhalation BID Qty: 90 RF: 0 epinephrine 0.3 mg/0.3 mL auto-injector 0.3 ml IM PRN RF: 0 guaifenesin 600 mg tablet extended release 12hr 600 mg PO Q12H PRN (Reason: congestion) Qty: 20 RF: 0 montelukast 10 mg tablet 10 mg PO HS Qty: 90 RF: 0 omeprazole 20 mg capsule,delayed release(/EC) 20 mg PO QAM Qty: 90 RF: 0 fluticasone propion-salmeterol [Wixela Inhub] 250-50 mcg/dose blister with device 1 puffs INH BID Qty: 60 RF: 5 tamsulosin [Flomax] 0.4 mg capsule 0.4 mg PO QDD RF: 0 verapamil 240 mg tablet extended release 120 mg PO HS RF: 0 metoprolol succinate 25 mg tablet extended release 24 hr 12.5 mg PO HS RF: 0 fexofenadine 180 mg Tablet 90 mg PO BID RF: 0 Discharge Orders: Discharge Order (Routine); Ordered 08/23/19 Ordered By: Fely Chau/Other Patient Handouts: Hydronephrosis Ch, Atelectasis, Hypertension Control, Diverticulosis Diverticulitis, DASH Plan Eat Heart Healthy Food, Injury Acute Kidney Dc, Fibrillation Atrial Dc, Hypertension Dc, Hyperplasia Benign Prostatic, ED Retention Urinary Male Admission Data Admit Date/Time: 08/21/19 16:27 Attending Provider: Fely Kumar Admit Provider: Evelin Vick Primary Care Provider: Jaime Aguero Other Providers: Evelin Vick ; Rocky Garcia ; [facility],Home Healthcare ; Bree Monson Other Interventions: Discharge Summary Assessment (RN) Last Done: 08/23/19 16:41 DC Date/Time DO NOT enter until pt leaves facility: 08/23/19 17:46 Supervising Physician Co-Signing Physician Notes PA Supervision Note: I personally saw and examined the patient. I verified all fraser points and agree with WAYNE David with the following exceptions and/or additions: Doing well, some pink-tinged urine, small clot flushed by RN on day of discharge. having some suprapubic pains occasionally today, likely from bladder spasm and hematuria. No other concerning symptoms, is afrbrile, no CP or SOB VSS NAD RRR no mgr CTAB no wcr Abd +BS soft NT ND Ext no edema Fley in place with pink-tinged urine 64 yo male with acute urinary retention and likely FAHAD -Hilario placed, started finasteride, hematuria mild Maintain Hilario at dc and f/u with Nephrology, follow renal function as outpt,and f/u with Urology No reason to treat for infection at this time unless bacteria grows on Urine cx--> will follow Ur cx after discharge and call if positive
[2019-08-24] MEDS ORDERED: FINASTERIDE 5 MG TAB PO SCH (09:00)
== END 2019-08-23 17:46 | disposition home health service (06) | DRG 726 ==
LOC: ED 14:31 → SUATTDRO 16:27 → 3W 16:27